=== PATIENT | female | born 1950 | race Caucasian/White ===

== ENCOUNTER 2016-04-29 11:37 | Inpatient (IN) | payer OTHER, MEDICARE ==
[~2016-04-29] VITALS: Ht 162.6 cm; Wt 102.0 kg
[2016-04-29] VITALS (11 sets, daily range): BP systolic 121–177; BP diastolic 61–77; PULSE 74–108; RESP 16–25; TEMP 97.9–98.4; O2SAT 92–98
[~2016-04-29 11:37] MED LIST: ASPI81TA82 PO; ATEN-102 PO; IBUP800T23 PO; LOSA50TA PO; PERC5TAB12 PO; TRAM100T19 PO
[2016-04-29] MEDS ORDERED: SODIUM CHLOR 0.9% 1000 ML INJ 1,000 ML IV SCH (11:58)
[2016-04-29] MEDS ORDERED: FAMOTIDINE 20 MG/2 ML VIAL IV PUSH ONE (12:00)
[2016-04-29] MEDS ORDERED: ONDANSETRON HCL 4 MG/2 ML VIAL IVP ONE (12:00)
[2016-04-29] MEDS ORDERED: MORPHINE SULFATE 4 MG/ML INJ IV PUSH ONE ×2 (12:00→14:15)
[2016-04-29] MEDS ORDERED: SODIUM CHLORIDE 0.9% FLUSH 5 ML FLUSH IVF PRN (12:00)
--- NOTE | 2016-04-29 12:08 | PD ---
HPI Chief Complaint: Abdominal Pain Time Seen by Provider: 11:58 Travel History International Travel<30 days: No Contact w/Intl Traveler<30days: No Traveled to known affect area: No History of Present Illness HPI The patient is a 65-year-old female who presents to the emergency department for abdominal pain. The patient states she had approximately 6 glasses of wine and 4 beers last night, at 4:30 this morning, the patient awakened with sudden nausea. The patient had nausea and vomiting and then subsequently developed epigastric abdominal pain. She also complains of several bouts of loose stool. The patient does have a history pancreatitis, is unsure if it was secondary to alcohol use her medications. The patient denies any history of gallstones, biliary colic, or cholecystitis. The patient's previous abdominal surgeries include tubal ligation and hysterectomy. The patient denies any dysuria, frequency, or urgency. The patient denies any associated fever, chills, sweats, chest pain, or shortness of breath. Symptoms are moderate, pain is described as sharp, epigastric, radiating to the flanks bilaterally, without any alleviating factors. PFSH Past Medical History Arthritis: Yes Depression: Yes Heart Rhythm Problems: No Cancer: No Cardiovascular Problems: Yes (htn) High Cholesterol: No Chest Pain: No Congestive Heart Failure: No Diminished Hearing: No Endocrine: No GERD: No Genitourinary: No Hiatal Hernia: No Hypertension: Yes Immune Disorder: No Musculoskeletal: No Neurologic: No Psychiatric: No Reproductive: No Respiratory: No Migraines: Yes Ulcer: No Tetanus Vaccination: Unknown Influenza Vaccination: No ?: Not : 2 Para: 2 Tubal Ligation: Yes Past Surgical History Abdominal Surgery: Yes (hysterectomy) Cardiac Surgery: No Ear Surgery: No Endocrine Surgery: No Eye Surgery: No Gynecologic Surgery: Yes (hysterectomy) Hysterectomy: Yes Neurologic Surgery: Yes (back surgery 1988, 1991) Oral Surgery: No Thoracic Surgery: No Other Surgery: Yes (DISC SURERY 1988, SPINAL FUSION, 1991) Social History Alcohol Use: Yes ("a few beers every couple of days") Tobacco Use: No Substance Use: No Allergies-Medications (Allergen,Severity, Reaction): Coded Allergies: No Known Allergies (Unverified , 02/19/16) Reported Meds & Prescriptions Reported Meds & Active Scripts Active Losartan Potassium 50 MG (Losartan Potassium) 50 Mg Tab 50 Mg PO DAILY Take one daily for high blood pressure. Ibuprofen 800 Mg Tab 800 Mg PO Q6H PRN Percocet 5-325 mg (Oxycodone/Acetaminophen) 1 Tab 1 Tab PO Q4H PRN Tramadol HCl ER (Tramadol HCl) 100 Mg Tab 100 Mg PO DAILY Take 1-2 pills, as needed, for pain. Atenolol 50 Mg Tab 50 Mg PO DAILY Take 1 pill daily. Reported Aspir-81 (Aspirin) 81 Mg Tab 81 Mg PO DAILY Review of Systems Except as stated in HPI: all other systems reviewed are Neg General / Constitutional: No: Fever HENT: No: Lightheadedness Cardiovascular: No: Chest Pain or Discomfort Respiratory: No: Shortness of Breath Gastrointestinal: Positive: Nausea, Vomiting, Diarrhea, Abdominal Pain Genitourinary: No: Dysuria Musculoskeletal: No: Myalgias, Arthralgias Neurologic: No: Dizziness Physical Exam Narrative GENERAL: Awake, alert, 55 year-old female who appears her stated age and appears in moderate discomfort. SKIN: Warm and dry. HEAD: Atraumatic. Normocephalic. EYES: Pupils equal and round. No scleral icterus. No injection or drainage. ENT: No nasal bleeding or discharge. Mucous membranes pink and moist. NECK: Trachea midline. No JVD. CARDIOVASCULAR: Regular rate and rhythm. No murmur appreciated. RESPIRATORY: No accessory muscle use. Clear to auscultation. Breath sounds equal bilaterally. GASTROINTESTINAL: Abdomen soft, tender palpation epigastrium. Mild guarding, no rebound tenderness or rigidity noted. MUSCULOSKELETAL: No obvious deformities. No clubbing. No cyanosis. No edema. NEUROLOGICAL: Awake and alert. No obvious cranial nerve deficits. Motor grossly within normal limits. Normal speech. PSYCHIATRIC: Appropriate mood and affect; insight and judgment normal. Data Data Last Documented VS Vital Signs Date Time Temp Pulse Resp B/P Pulse Ox O2 Delivery O2 Flow Rate FiO2 04/29/16 12:27 98 Room Air 04/29/16 11:56 96 20 146/67 04/29/16 11:46 97.9 Orders Complete Blood Count With Diff (04/29/16 11:58) Comprehensive Metabolic Panel (04/29/16 11:58) Lipase (04/29/16 11:58) Lactic Acid (04/29/16 11:58) Urinalysis - C+S If Indicated (04/29/16 11:58) Ct Abd/Pel W/O Iv Contrast (04/29/16 11:58) Iv Access Insert/Monitor (04/29/16 11:58) Ecg Monitoring (04/29/16 11:58) Oximetry (04/29/16 11:58) Morphine Inj (Morphine Inj) (04/29/16 12:00) Ondansetron Inj (Zofran Inj) (04/29/16 12:00) Sodium Chlor 0.9% 1000 Ml Inj (Ns 1000 M (04/29/16 11:58) Sodium Chloride 0.9% Flush (Ns Flush) (04/29/16 12:00) Electrocardiogram (04/29/16 11:58) Famotidine Inj (Pepcid Inj) (04/29/16 12:00) Sodium Chlor 0.9% 1000 Ml Inj (Ns 1000 M (04/29/16 13:00) Magnesium (Mg) (04/29/16 13:43) Sodium Chlor 0.9% 1000 Ml Inj (Ns 1000 M (04/29/16 14:15) Morphine Inj (Morphine Inj) (04/29/16 14:15) Admit Order (Ed Use Only) (04/29/16 14:09) Labs Laboratory Tests Test 04/29/16 12:00 White Blood Count 15.3 TH/MM3 Red Blood Count 4.90 MIL/MM3 Hemoglobin 15.2 GM/DL Hematocrit 44.9 % Mean Corpuscular Volume 91.6 FL Mean Corpuscular Hemoglobin 31.0 PG Mean Corpuscular Hemoglobin 33.8 % Concent Red Cell Distribution Width 13.2 % Platelet Count 197 TH/MM3 Mean Platelet Volume 8.6 FL Neutrophils (%) (Auto) 87.8 % Lymphocytes (%) (Auto) 7.3 % Monocytes (%) (Auto) 4.5 % Eosinophils (%) (Auto) 0.1 % Basophils (%) (Auto) 0.3 % Neutrophils # (Auto) 13.4 TH/MM3 Lymphocytes # (Auto) 1.1 TH/MM3 Monocytes # (Auto) 0.7 TH/MM3 Eosinophils # (Auto) 0.0 TH/MM3 Basophils # (Auto) 0.0 TH/MM3 CBC Comment DIFF FINAL Differential Comment Sodium Level 141 MEQ/L Potassium Level 3.7 MEQ/L Chloride Level 107 MEQ/L Carbon Dioxide Level 18.9 MEQ/L Anion Gap 15 MEQ/L Blood Urea Nitrogen 18 MG/DL Creatinine 1.01 MG/DL Estimat Glomerular Filtration 55 ML/MIN Rate Random Glucose 169 MG/DL Lactic Acid Level 5.7 mmol/L Calcium Level 9.2 MG/DL Total Bilirubin 2.5 MG/DL Aspartate Amino Transf 267 U/L (AST/SGOT) Alanine Aminotransferase 253 U/L (ALT/SGPT) Alkaline Phosphatase 145 U/L Total Protein 7.7 GM/DL Albumin 4.0 GM/DL Lipase GREATER THAN 94652 U/L [facility] Medical Decision Making Medical Screen Exam Complete: Yes Emergency Medical Condition: Yes Medical Record Reviewed: Yes Interpretation(s) EKG reveals sinus tachycardia with a rate of 108. QTC is 407 ms. QT appears longer than half the R-R interval. Laboratory Tests Test 04/29/16 12:00 White Blood Count 15.3 TH/MM3 Red Blood Count 4.90 MIL/MM3 Hemoglobin 15.2 GM/DL Hematocrit 44.9 % Mean Corpuscular Volume 91.6 FL Mean Corpuscular Hemoglobin 31.0 PG Mean Corpuscular Hemoglobin 33.8 % Concent Red Cell Distribution Width 13.2 % Platelet Count 197 TH/MM3 Mean Platelet Volume 8.6 FL Neutrophils (%) (Auto) 87.8 % Lymphocytes (%) (Auto) 7.3 % Monocytes (%) (Auto) 4.5 % Eosinophils (%) (Auto) 0.1 % Basophils (%) (Auto) 0.3 % Neutrophils # (Auto) 13.4 TH/MM3 Lymphocytes # (Auto) 1.1 TH/MM3 Monocytes # (Auto) 0.7 TH/MM3 Eosinophils # (Auto) 0.0 TH/MM3 Basophils # (Auto) 0.0 TH/MM3 CBC Comment DIFF FINAL Differential Comment Sodium Level 141 MEQ/L Potassium Level 3.7 MEQ/L Chloride Level 107 MEQ/L Carbon Dioxide Level 18.9 MEQ/L Anion Gap 15 MEQ/L Blood Urea Nitrogen 18 MG/DL Creatinine 1.01 MG/DL Estimat Glomerular Filtration 55 ML/MIN Rate Random Glucose 169 MG/DL Lactic Acid Level 5.7 mmol/L Calcium Level 9.2 MG/DL Total Bilirubin 2.5 MG/DL Aspartate Amino Transf 267 U/L (AST/SGOT) Alanine Aminotransferase 253 U/L (ALT/SGPT) Alkaline Phosphatase 145 U/L Total Protein 7.7 GM/DL Albumin 4.0 GM/DL Lipase GREATER THAN 59494 U/L Differential Diagnosis Differential diagnosis includes pancreatitis, gastritis, peptic ulcer disease, cholecystitis, biliary colic, nephrolithiasis, pyelonephritis, AAA. Narrative Course IV was established, labs are drawn and sent, and the patient was placed on cardiac telemetry monitoring and continuous pulse oximetry monitoring. The patient was administered morphine, Zofran, Prevacid, and IV fluids. Lipase level was sent to lab and CT of the abdomen and pelvis was ordered. Lipase was greater than 30,000, LFTs are mildly elevated. When I reviewed the EMR, her previous pancreatitis lipase level was greater than 15,000 and LFTs were elevated as well. The patient had a CT the abdomen and pelvis as well as ultrasound of the gallbladder at that time which was negative for obstructive pathology. CT the abdomen and pelvis today reveals pancreatitis with inflammatory changes extending into the mesentery but no obstructive pathology. The patient's pain did improve to 5/10, therefore, she was dosed with another dose of morphine intravenously. Lactic acid was elevated at 5.7, therefore, second liter of IV fluids was bolused. I discussed the patient with her physicians, the residents, who agreed with admission. The patient will be placed in intensive care unit overnight for IV hydration and to evaluate for possible conversion to hemorrhagic pancreatitis. The patient is comfortable with this plan of care and disposition. Physician Communication Physician Communication I discussed the patient with Dr. Mcgrath who agrees with admission. Diagnosis Primary Impression: Acute pancreatitis Qualified Code: K85.20 - Alcohol-induced acute pancreatitis, unspecified complication status Additional Impression: Epigastric abdominal pain Admitting Information Admitting Physician Requests: Admit Condition: Stable Surendra Dao MD Apr 29, 2016 12:08
[2016-04-29 12:29] LABS: AUTOMATED NEUTROPHIL # 13.4 TH/MM3 (1.8-7.7); BASOPHIL % 0.3 % (0.0-2.0); EOSINOPHIL % 0.1 % (0.0-4.0); HEMATOCRIT 44.9 % (35.0-46.0); HEMO FLAGS DIFF FINAL; LYMPH % 7.3 % (9.0-44.0); LYMPHOCYTE # 1.1 TH/MM3 (1.0-4.8); MEAN CELL VOLUME 91.6 FL (80.0-100.0); MEAN CORPUSCULAR HGB CONC 33.8 % (32.0-36.0); MONO % 4.5 % (0.0-8.0); NEUT % 87.8 % (16.0-70.0); PLATELET COUNT 197 TH/MM3 (150-450); RED CELL DISTRIBUTION WIDTH 13.2 % (11.6-17.2); WHITE BLOOD COUNT 15.3 TH/MM3 (4.0-11.0)
[2016-04-29 12:47] LABS: ANION GAP 15 MEQ/L (5-15); AST (GOT) 267 U/L (15-37); BICARBONATE 18.9 MEQ/L (21.0-32.0); BLOOD UREA NITROGEN 18 MG/DL (7-18); CHLORIDE 107 MEQ/L (98-107); GLOMERULAR FILTRATION RATE 55 ML/MIN (>89); POTASSIUM 3.7 MEQ/L (3.5-5.1); SODIUM (NA) 141 MEQ/L (136-145)
[2016-04-29 12:51] LABS: ALKALINE PHOSPHATASE 145 U/L (45-117); ALT (GPT) 253 U/L (10-53); TOTAL BILIRUBIN ADULT 2.5 MG/DL (0.2-1.0)
[2016-04-29] MEDS ORDERED: SODIUM CHLOR 0.9% 1000 ML INJ 1,000 ML IV ONE ×2 (13:00→14:15)
--- NOTE | 2016-04-29 13:39 | RADRPT ---
EXAM DATE/TIME: 04/29/2016 13:09 [facility] COMPARISON: CT ABDOMEN & PELVIS W CONTRAST, December 24, 2014, 11:26. INDICATIONS : Mid abdomen painstarting last night with diarrhea and nausea. ORAL CONTRAST: No oral contrast ingested. RADIATION DOSE: 11.27 CTDIvol (mGy) MEDICAL HISTORY : Pancreatitis. Cardiovascular disease Hypertension. SURGICAL HISTORY : Hysterectomy. Orthopedic ENCOUNTER: Initial ACUITY: 1 day PAIN SCALE: 10/10 LOCATION: Bilateral abdomen TECHNIQUE: Volumetric scanning of the abdomen and pelvis was performed. Using automated exposure control and ad justment of the mA and/or kV according to patient size, radiation dose was kept as low as reasonably achievable to obtain optimal diagnostic quality images. FINDINGS: Again noted is evidence of prior surgery L5-S1 laminectomy and transpedicular screws with vertical wr ist. There is fatty metamorphosis of the liver. Subtle left renal cysts are appreciated on this nonco ntrast study. Gallbladder series luminal structure without wall thickening or stones and there is no evidence of dilated ducts. Significant change is in the region of the pancreas where there is infiltrative inflammatory change in the peripancreatic fat particularly r elative to the head of the pancreas and adjacent body and extending into the mesentery. There is no o rganized fluid collection abscess or free air. CONCLUSION: Findings consistent with development of pancreatitis Reese Galvez MD on April 29, 2016 at 13:32 Board Certified Radiologist. This report was verified electronically.
[2016-04-29] MEDS ORDERED: SODIUM CHLORIDE 0.9% FLUSH 5 ML FLUSH IV PRN (14:30)
[2016-04-29] MEDS ORDERED: ONDANSETRON HCL 4 MG/2 ML VIAL IV PRN (14:30)
[2016-04-29] MEDS ORDERED: KETOROLAC TROMETHAMINE 30 MG/ML (IVP) VIAL IVP PRN (14:30)
[2016-04-29] MEDS ORDERED: ACETAMINOPHEN/HYDROcodone 325 MG/7.5 MG TAB PO PRN (14:30)
--- NOTE | 2016-04-29 14:31 | HHI.HP ---
[facility] Service [facility] Primary Care Physician Renae Miller MD Admission Diagnosis severe pancreatitis, lactic acidosis, transaminitis Diagnoses: International Travel<30 Days: No Contact w/Intl Traveler<30days: No Known Affected Area: No History of Present Illness 65-year-old female with history of hypertension, osteoarthritis of hands, chronic low back pain, obesity, and gout presents to the ED for abdominal pain. She was hospitalized for acute pancreatitis in March 2015 and lipase at that time was 15,000. She says that she is unsure if it was secondary to alcohol or her medications at that time. At that admission, she denied heavy drinking the week or day prior to attack. She did leave AMA after declining HIDA scan and MRCP. Hepatitis workup was not completed. Ultrasound did not find gallstone or inflammation of gallbladder. She has declined screening colonoscopy as outpatient. Recent order for GI referral and colonoscopy as an outpatient was placed and set up, but patient then declined the appointment when GI call to set up the referral. Last night she drank 6 glasses of wine and 4 beers. She woke up around 4:30am this morning with sudden nausea, vomiting and epigastric abdominal pain associated with loose stools. She denies history of gallstones, biliary colic, or cholecystitis. Denies dysuria, frequency, or urgency. Denies fever, chills, sweats, chest pain, or shortness of breathe. Her main complaint is the sharp, epigastric abdominal pain, radiating to the flanks bilaterally. The pain is worse with movement. Review of Systems Constitutional: DENIES: Fever, Chills Endocrine: DENIES: Polydipsia, Polyuria Eyes: DENIES: Blurred vision, Vision loss Ears, nose, mouth, throat: DENIES: Running Nose Respiratory: DENIES: Cough, Sputum production, Shortness of breath Cardiovascular: DENIES: Chest pain Gastrointestinal: COMPLAINS OF: Abdominal pain, Diarrhea, Nausea, Vomiting, DENIES: Constipation Genitourinary: DENIES: Urinary frequency, Urgency, Dysuria Musculoskeletal: COMPLAINS OF: Back pain (chronic), DENIES: Joint pain, Muscle aches Integumentary: DENIES: Rash Neurologic: DENIES: Abnormal gait, Headache, Tremor Past Family Social History Past Medical History Hypertension OA of hands: Chronic Low Back Pain: Gout Pancreatitis Radius Fracture Past Surgical History Tubal ligation Hysterectomy. Back surgery: Disc 1989 and sacral vertebral fusion 1991 Reported Medications Reported Meds & Active Scripts Active Losartan Potassium 50 MG (Losartan Potassium) 50 Mg Tab 50 Mg PO DAILY Take one daily for high blood pressure. Ibuprofen 800 Mg Tab 800 Mg PO Q6H PRN Percocet 5-325 mg (Oxycodone/Acetaminophen) 1 Tab 1 Tab PO Q4H PRN Tramadol HCl ER (Tramadol HCl) 100 Mg Tab 100 Mg PO DAILY Take 1-2 pills, as needed, for pain. Atenolol 50 Mg Tab 50 Mg PO DAILY Take 1 pill daily. Reported Aspir-81 (Aspirin) 81 Mg Tab 81 Mg PO DAILY Allergies: Coded Allergies: No Known Allergies (Unverified , 02/19/16) Family History Adopted, but maternal aunt had breast cancer. Social History Nonsmoker. 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 SKIN: Warm and dry. HEAD: Atraumatic. Normocephalic. EYES: Pupils equal and round. No scleral icterus. No injection or drainage. ENT: No nasal bleeding or discharge. Mucous membranes pink and moist. NECK: Trachea midline. No JVD. CARDIOVASCULAR: Regular rate and rhythm. No murmur appreciated. RESPIRATORY: No accessory muscle use. Clear to auscultation. Breath sounds equal bilaterally. GASTROINTESTINAL: Abdomen soft, tender palpation on epigastrium. Mild guarding , no rebound tenderness or rigidity noted. MUSCULOSKELETAL: No obvious deformities. No clubbing. No cyanosis. No edema. NEUROLOGICAL: Awake and alert. No obvious cranial nerve deficits. Motor grossly within normal limits. Normal speech. PSYCHIATRIC: Appropriate mood and affect; insight and judgment normal. Laboratory Laboratory Tests Test 04/29/16 12:00 White Blood Count 15.3 Red Blood Count 4.90 Hemoglobin 15.2 Hematocrit 44.9 Mean Corpuscular Volume 91.6 Mean Corpuscular Hemoglobin 31.0 Mean Corpuscular Hemoglobin 33.8 Concent Red Cell Distribution Width 13.2 Platelet Count 197 Mean Platelet Volume 8.6 Neutrophils (%) (Auto) 87.8 Lymphocytes (%) (Auto) 7.3 Monocytes (%) (Auto) 4.5 Eosinophils (%) (Auto) 0.1 Basophils (%) (Auto) 0.3 Neutrophils # (Auto) 13.4 Lymphocytes # (Auto) 1.1 Monocytes # (Auto) 0.7 Eosinophils # (Auto) 0.0 Basophils # (Auto) 0.0 CBC Comment DIFF FINAL Differential Comment Sodium Level 141 Potassium Level 3.7 Chloride Level 107 Carbon Dioxide Level 18.9 Anion Gap 15 Blood Urea Nitrogen 18 Creatinine 1.01 Estimat Glomerular Filtration 55 Rate Random Glucose 169 Lactic Acid Level 5.7 Calcium Level 9.2 Total Bilirubin 2.5 Aspartate Amino Transf 267 (AST/SGOT) Alanine Aminotransferase 253 (ALT/SGPT) Alkaline Phosphatase 145 Total Protein 7.7 Albumin 4.0 Lipase GREATER THAN 59306 Result Diagram: 04/29/16 1200 04/29/16 1200 Septic Shock Reassessment Heart: Regular rate and rhythm Lungs: Clear Skin: Warm, Dry Assessment and Plan Assessment and Plan 65-year-old female admitted previously in 2014 for acute pancreatitis presents to the ED with acute abdominal pain, nausea and vomiting found to lipase elevated to >30,[address] of abdomen and pelvis with findings of acute pancreatitis. Code Status Full Discussed Condition With Discussed with Dr. Marks Problem List: (1) Acute pancreatitis Status: Acute Plan: Differential diagnosis includes pancreatitis, gastritis, peptic ulcer disease, cholecystitis, biliary colic, nephrolithiasis, pyelonephritis, mesenteric ischemia, [place], AAA. Previous pancreatitis lipase level was >15,000 and LFTs were elevated as well. CT the abdomen and pelvis as well as ultrasound of the gallbladder at that time were negative for obstructive pathology. Today CT the abdomen and pelvis shows pancreatitis with inflammatory changes extending into the mesentery but no obstructive pathology. Lipase > 30,000, LFTs elevated at 267/253. Lactic acid elevated at 5.7. LDH 563. Bilirubin 2.5 , direct bilirubin 1.7. -Potential etiologies for pancreatitis include gallstones, alcoholism, hypertriglyceridemia, medications, recent fatty meal, virus - Given morphine x2, Zofran, Prevacid, and IV fluids in ED. - Leukocytosis of 15.3 with left shift, neutrophil 87.8%. Temperature 97.9 - UA negative, UDS negative - NPO - GI consulted, appreciate assistance. Plan is for MRCP. May need EGD during this admission. - IgG 4 level ordered - LR at 125cc/hr - Zofran when necessary nausea - Strict I/O. OUP goal is > 0.5 cc/kg/hr. Will titrate fluids based on UOP. - Trend lactic acid per sepsis protocol - Hepatitis profile pending - A.M. labs: CBC, CMP, lipase, magnesium, phosphorus -Pain control: Morphine 4mg IV q3hr PRN pain 4-10 [place] 7.5/325 2 tablets PO PRN pain 1-3 -Admit to intensive care unit overnight for IV hydration and to monitor for possible conversion to hemorrhagic pancreatitis - Chest x-ray may be needed to evaluate for pleural effusions if patient becomes symptomatic (2) HTN (hypertension) Status: Chronic Plan: Blood pressure 146/67 - Continue home medications of Cozaar 50 daily, and atenolol 50 daily - Hydralazine 10 mg by mouth every 4 hours when necessary blood pressure greater than 160/90 (3) Osteoarthritis Status: Chronic Plan: Continue pain medication as above (4) Gout Status: Chronic Plan: Not on medication currently. Patient requested a trial off of allopurinol in February 2016. Last flare up years past. (5) Lumbar back pain Status: Chronic Plan: Pain medications as above. (6) Alcohol use Status: Chronic Plan: Counseled on cessation, as this could be contributing to development of pancreatitis (7) Nutrition, metabolism, and development symptoms Status: Acute Plan: Fluids: LR 125 cc/hr Electrolytes: Normal, continue to monitor Diet: NPO DVT PPx: SCDs Physician Certification 2 Midnight Certification Type: Admission for Inpatient Services Order for Inpatient Services The services are ordered in accordance with Medicare regulations or non- Medicare payer requirements, as applicable. In the case of services not specified as inpatient-only, they are appropriately provided as inpatient services in accordance with the 2-midnight benchmark. Estimated LOS (days): 2 2 days is the estimated time the patient will need to remain in the hospital, assuming treatment plan goals are met and no additional complications. Post-Hospital Plan: Not yet determined Problem Qualifiers (1) Acute pancreatitis: Qualified Code: K85.20 - Alcohol-induced acute pancreatitis, unspecified complication status (2) HTN (hypertension): Qualified Code: I10 - Essential hypertension (3) Osteoarthritis: Qualified Code: M19.90 - Osteoarthritis, unspecified osteoarthritis type, unspecified site (4) Gout: Qualified Code: M10.9 - Gout, unspecified cause, unspecified chronicity, unspecified site (5) Lumbar back pain: Qualified Code: M54.5 - Chronic low back pain, unspecified back pain laterality , with sciatica presence unspecified Adriana Mcgrath MD Apr 29, 2016 14:31
[2016-04-29 15:11] LABS: BLOOD, URINE NEG (NEG); COMMENT (UR) CULT NOT INDICATED; CULTURE IF INDICATED CULT NOT INDICATED; GLUCOSE,URINE NEG (NEG); KETONE, URINE 10 mg/dL (NEG); MUCUS URINE FEW /lpf (OCC); NITRITE,URINE NEG (NEG); SQUAMOUS EPITHELIAL CELL URINE 1 /hpf (0-5); URINE COLOR YELLOW (YELLW/STRAW)
[2016-04-29 15:14] LABS: AMPHETAMINE, URINE NEG (NEG); BARBITURATES, URINE NEG (NEG); COCAINE, URINE NEG (NEG)
[2016-04-29 15:21] LABS: LDH SERUM 563 U/L (84-246); MAGNESIUM 1.8 MG/DL (1.5-2.5)
[2016-04-29] MEDS: LACTATED RINGER'S 1000 ML INJ 1,000 ML IV SCH ×2 (16:13→23:41)
--- NOTE | 2016-04-29 16:22 | PD.CONS ---
HPI History of Present Illness This is a 65 year old female patient that came to the ER for evaluation of acute onset of severe constant epigastric pain associated with nausea, vomiting and diarrhea. This began suddenly 4 am, this is a severe band-like pressure around epigastric area that radiated to her chest. She denies any associated jaundice, fever, chills, hematemesis, melena or hematochezia. She had a similar episode last year, and was hospitalized and GI consulted, however, she left AMA at that time after declining HIDA scan and MRCP. Hepatic workup was not completed, but RONAK, celiac panel negative at the time. She denies any known gallbladder or liver problems. She denies any new medications. She denies the use herbal supplements. She is adopted and does not know her family hx. She usually drinks 1-2 beers per day, but had more than usual last night ( 6 glasses of wine and 4 beers). She denies any new medications. She denies the use herbal supplements. She is adopted and does not know her family hx. CT revealed Findings consistent with development of pancreatitis. Lipase > 21274, elevated LFTs, AST 267, ALT 253, ALP 145, bili 2.5. WBC 15.3. (Casey Urena) PFSH Past Medical History Arthritis Gout HTN Migraines Pancreatitis Past Surgical History Hysterectomy Spinal fusion (Casey Urena) Coded Allergies: No Known Allergies (Unverified , 02/19/16) Medications Current Medications Medications (Trade) Dose Ordered Sig/Liz Route Start Time Stop Time Status Last Admin (Lr 1000 ml Inj) 1,000 ml @ 125 mls/hr Q8H IV 04/29/16 15:00 (NS Flush) 2 ml UNSCH PRN IV 04/29/16 14:30 (NS Flush) 2 ml BID IV 04/29/16 21:00 (Morphine Inj) 4 mg Q3H PRN IV PUSH 04/29/16 14:30 (Zofran Inj) 4 mg Q6H PRN IV 04/29/16 14:30 ([place] 7.5-325 Mg) 2 tab Q6H PRN PO 04/29/16 14:30 (Aspirin Chew) 81 mg DAILY PO 04/30/16 09:00 (Tenormin) 50 mg DAILY PO 04/30/16 09:00 (Cozaar) 50 mg DAILY PO 04/30/16 09:00 Family History Adopted Social History ETOH, usually 1-2 beers, but last night had (6 glasses of wine and 4 beers) No tobacco or illicit drugs (Casey Urena) Review of Systems Constitutional: DENIES: Fatigue, Fever, Chills Endocrine: DENIES: Polyuria Eyes: DENIES: Double Vision Ears, nose, mouth, throat: DENIES: Hoarseness Respiratory: DENIES: Shortness of breath Cardiovascular: DENIES: Lower Extremity Edema Gastrointestinal: COMPLAINS OF: Abdominal pain, Diarrhea, Nausea, Vomiting, DENIES: Black stools, Bloody stools, Constipation, Difficulty Swallowing, Anorexia, Odynophagia, Swelling of Abdomen, Heartburn, Hematemesis Genitourinary: DENIES: Hematuria Musculoskeletal: DENIES: Neck pain Integumentary: DENIES: Jaundice Hematologic/lymphatic: DENIES: Bruising Immunologic/allergic: DENIES: Eczema Neurologic: DENIES: Abnormal gait Psychiatric: DENIES: Anxiety (Casey Urena) GI Exam Vitals I&O Vital Signs Date Time Temp Pulse Resp B/P Pulse Ox O2 Delivery O2 Flow Rate FiO2 04/29/16 15:06 93 Nasal Cannula 2.00 04/29/16 15:01 18 04/29/16 14:59 105 20 150/68 92 Room Air 04/29/16 12:39 16 04/29/16 12:27 98 Room Air 04/29/16 11:56 96 20 146/67 98 Room Air 04/29/16 11:46 97.9 74 16 164/70 95 Imaging Last Impressions Abdomen/Pelvis CT 04/29/16 1158 Signed Impressions: Service Date/Time: Friday, April 29, 2016 13:09 - CONCLUSION: Findings consistent with development of pancreatitis Reese Galvez MD Laboratory Test 04/29/16 04/29/16 04/29/16 12:00 14:45 14:55 White Blood Count 15.3 TH/MM3 Red Blood Count 4.90 MIL/MM3 Hemoglobin 15.2 GM/DL Hematocrit 44.9 % Mean Corpuscular Volume 91.6 FL Mean Corpuscular Hemoglobin 31.0 PG Mean Corpuscular Hemoglobin 33.8 % Concent Red Cell Distribution Width 13.2 % Platelet Count 197 TH/MM3 Mean Platelet Volume 8.6 FL Neutrophils (%) (Auto) 87.8 % Lymphocytes (%) (Auto) 7.3 % Monocytes (%) (Auto) 4.5 % Eosinophils (%) (Auto) 0.1 % Basophils (%) (Auto) 0.3 % Neutrophils # (Auto) 13.4 TH/MM3 Lymphocytes # (Auto) 1.1 TH/MM3 Monocytes # (Auto) 0.7 TH/MM3 Eosinophils # (Auto) 0.0 TH/MM3 Basophils # (Auto) 0.0 TH/MM3 CBC Comment DIFF FINAL Differential Comment Sodium Level 141 MEQ/L Potassium Level 3.7 MEQ/L Chloride Level 107 MEQ/L Carbon Dioxide Level 18.9 MEQ/L Anion Gap 15 MEQ/L Blood Urea Nitrogen 18 MG/DL Creatinine 1.01 MG/DL Estimat Glomerular Filtration 55 ML/MIN Rate Random Glucose 169 MG/DL Lactic Acid Level 5.7 mmol/L Calcium Level 9.2 MG/DL Total Bilirubin 2.5 MG/DL Aspartate Amino Transf 267 U/L (AST/SGOT) Alanine Aminotransferase 253 U/L (ALT/SGPT) Alkaline Phosphatase 145 U/L Total Protein 7.7 GM/DL Albumin 4.0 GM/DL Lipase GREATER THAN 74179 U/L Urine Color YELLOW Urine Turbidity CLEAR Urine pH 5.0 Urine Specific [place] 1.015 Urine Protein TRACE mg/dL Urine Glucose (UA) NEG mg/dL Urine Ketones 10 mg/dL Urine Occult Blood NEG Urine Nitrite NEG Urine Bilirubin NEG Urine Urobilinogen LESS THAN 2.0 MG/DL Urine Leukocyte Esterase MOD Urine RBC LESS THAN 1 /hpf Urine WBC 3 /hpf Urine Squamous Epithelial 1 /hpf Cells Urine Mucus FEW /lpf Microscopic Urinalysis Comment CULT NOT INDICATED Urine Opiates Screen POS Urine Barbiturates Screen NEG Urine Amphetamines Screen NEG Urine Benzodiazepines Screen NEG Urine Cocaine Screen NEG Urine Cannabinoids Screen NEG Magnesium Level 1.8 MG/DL Direct Bilirubin 1.7 MG/DL Lactate Dehydrogenase 563 U/L C-Reactive Protein 2.05 MG/DL Triglycerides Level 76 MG/DL Ethyl Alcohol Level LESS THAN 3 MG/DL Physical Examination HEENT: normocephalic; atraumatic; no jaundice. Throat is clear. NECK: Neck is supple, no JVD, no lymphadenopathy. CHEST: Chest is clear to auscultation and percussion. CARDIAC: Regular rate and rhythm with no murmur gallop or rubs. ABDOMEN: Soft, nondistended, nontender; no hepatosplenomegaly; bowel sounds are present in all four quadrants. EXTREMITIES: No clubbing, cyanosis, or edema. SKIN: Normal; no rash; no jaundice. MACHINE SIZER: No focal deficits; alert and oriented times three. (Casey Urena) Assessment and Plan Plan ASSESSMENT: - Acute pancreatitis, unclear etiology. She usually drinks 1-2 beers per day, but had more than usual last night ( 6 glasses of wine and 4 beers). She denies any new medications. She denies the use herbal supplements. She is adopted and does not know her family hx. CT revealed Findings consistent with development of pancreatitis. Lipase > 71279, elevated LFTs, AST 267, ALT 253, ALP 145, bili 2.5. WBC 15.3. acute onset of severe constant epigastric pain associated with nausea, vomiting and diarrhea. This began suddenly 4 am, this is a severe band-like pressure around epigastric area that radiated to her chest. She denies any associated jaundice, fever, chills, hematemesis, melena or hematochezia. She had a similar episode last year, and was hospitalized and GI consulted, however, she left A at that time after declining HIDA scan and MRCP. Hepatic workup was not completed, but RONAK, celiac panel negative at the time. She denies any known gallbladder or liver problems. She denies any new medications. She denies the use herbal supplements. She is adopted and does not know her family hx. - Elevated LFTs. RONAK, celiac panel negative last year. She is on chronic use of hydrocodone, No prior hx of liver dz. - Alcohol use- counselled - Leukocytosis- WBC 15.3, afebrile - HTN, Arthritis, Gout, Migraines per primary PLAN: - NPO - MRCP - IgG 4 level - Hepatitis panel - Lipase, LFT in am - Alcohol cessation - Consider EGD during this admission - Supportive care - Further recommendations to follow based on results of above - Pt seen and examined by Dr. Camupzano and myself and this note is written on his behalf (Casey Urena) Physician Comments Seen and examined, plan as above, for further work up for etiology of her pancreatitis, continue supportive care for now. (Geena Campuzano MD) Casey Urena [facility] Apr 29, 2016 16:22 Geena Campuzano MD Apr 29, 2016 21:51
--- NOTE | 2016-04-29 18:06 | RADRPT ---
EXAM DATE/TIME: 04/29/2016 17:26 [facility] COMPARISON: CT ABDOMEN & PELVIS W/O CONTRAST, April 29, 2016, 13:09. INDICATIONS : Abdominal pain. MEDICAL HISTORY : Hypertension. SURGICAL HISTORY : Tubal ligation. Fusion, lumbar. Hysterectomy. ENCOUNTER: Initial ACUITY: 1 day PAIN SCORE: 6/10 LOCATION: ABDOMEN TECHNIQUE: Multiplanar, multisequence magnetic resonance imaging of the abdomen was performed. High-resolution 3D dataset was utilized to reconstruct maximum-intensity projection (MIP) images. FINDINGS: Gallbladder there is a luminal structure appears normal with no evidence of stones. Indeterminate ext rahepatic bile ducts are normal with no evidence of stricture or defect or dilatation. There is a tra ce amount of free fluid in the upper abdomen and the pancreas appears somewhat prominent. Multiple cy sts are appreciated of the mid to lower pole of the left kidney. CONCLUSION: Normal gallbladder and bile ducts. Somewhat prominent pancreas with indistinct margins suggesting erickson creatitis less prominent than appreciated on today's CT scan. Trace amount of ascitic fluid in the up per abdomen. Reese Galvez MD on April 29, 2016 at 18:00 Board Certified Radiologist. This report was verified electronically.
[2016-04-29 18:15] LABS: LACTIC ACID GHOST NOT REPORTABLE
[2016-04-29] MEDS: MORPHINE SULFATE 8 MG/ML INJ IV PUSH PRN (18:15)
[2016-04-29] MEDS: hydrALAZINE HCL 10 MG TAB PO PRN (18:16)
[2016-04-29] MEDS: SODIUM CHLORIDE 0.9% FLUSH 5 ML FLUSH IV SCH (19:43)
[2016-04-30] VITALS (14 sets, daily range): BP systolic 108–153; BP diastolic 54–68; PULSE 70–98; RESP 13–23; TEMP 97.5–98.4; O2SAT 91–96
[2016-04-30] MEDS: MORPHINE SULFATE 8 MG/ML INJ IV PUSH PRN ×2 (00:32→08:57)
[2016-04-30 04:29] LABS: AUTOMATED NEUTROPHIL # 11.4 TH/MM3 (1.8-7.7); BASOPHIL % 0.1 % (0.0-2.0); HEMATOCRIT 41.2 % (35.0-46.0); HEMO FLAGS DIFF FINAL; LYMPH % 7.8 % (9.0-44.0); MEAN CELL VOLUME 92.6 FL (80.0-100.0); MEAN CORPUSCULAR HEMOGLOBIN 31.3 PG (27.0-34.0); MEAN CORPUSCULAR HGB CONC 33.8 % (32.0-36.0); MONO % 2.1 % (0.0-8.0); PLATELET COUNT 165 TH/MM3 (150-450); RED BLOOD COUNT 4.45 MIL/MM3 (4.00-5.30); RED CELL DISTRIBUTION WIDTH 13.3 % (11.6-17.2); WHITE BLOOD COUNT 12.6 TH/MM3 (4.0-11.0)
[2016-04-30 04:57] LABS: ALKALINE PHOSPHATASE 105 U/L (45-117); ALT (GPT) 423 U/L (10-53); ANION GAP 9 MEQ/L (5-15); AST (GOT) 243 U/L (15-37); BICARBONATE 25.4 MEQ/L (21.0-32.0); BLOOD UREA NITROGEN 15 MG/DL (7-18); CHLORIDE 108 MEQ/L (98-107); GLOMERULAR FILTRATION RATE 74 ML/MIN (>89); MAGNESIUM 1.7 MG/DL (1.5-2.5); POTASSIUM 3.5 MEQ/L (3.5-5.1); SODIUM (NA) 142 MEQ/L (136-145)
[2016-04-30 04:58] LABS: TOTAL BILIRUBIN ADULT 2.9 MG/DL (0.2-1.0)
[2016-04-30] MEDS: LACTATED RINGER'S 1000 ML INJ 1,000 ML IV SCH ×3 (08:57→22:50)
[2016-04-30] MEDS: SODIUM CHLORIDE 0.9% FLUSH 5 ML FLUSH IV SCH ×2 (08:57→21:00)
--- NOTE | 2016-04-30 10:18 | HHI.HP ---
[facility] Service Family Medicine Primary Care Physician Renae Miller MD Admission Diagnosis severe pancreatitis, lactic acidosis, transaminitis Diagnoses: (1) Acute pancreatitis Diagnosis: Principal (2) HTN (hypertension) Diagnosis: Principal (3) Osteoarthritis Diagnosis: Principal (4) Gout Diagnosis: Principal (5) Lumbar back pain Diagnosis: Principal (6) Alcohol use Diagnosis: Principal (7) Nutrition, metabolism, and development symptoms Diagnosis: Principal International Travel<30 Days: No Contact w/Intl Traveler<30days: No Known Affected Area: No History of Present Illness Ms Bravo is a 65-year-old female with history of hypertension, osteoarthritis of hands, chronic low back pain, obesity, and gout who presented to the ED for abdominal pain. She was hospitalized for acute pancreatitis in March 2015 and lipase at that time was 15,000. She says that she is unsure if it was secondary to alcohol or her medications at that time. At that admission, she denied heavy drinking the week or day prior to attack. She did leave AMA after declining HIDA scan and MRCP. Hepatitis workup was not completed. Ultrasound did not find gallstone or inflammation of gallbladder. She has declined screening colonoscopy as outpatient. Recent order for GI referral and colonoscopy as an outpatient was placed and set up, but patient then declined the appointment when GI call to set up the referral. The day before admission between 11 am and 8 pm she drank 6 glasses of wine and 4 beers. She woke up around 4:30am the morning of admission with sudden nausea, vomiting and epigastric abdominal pain associated with loose stools. She denies history of gallstones, biliary colic, or cholecystitis. Denies dysuria, frequency, or urgency. Denies fever, chills, sweats, chest pain, or shortness of breath. Her main complaint is the sharp, epigastric abdominal pain, radiating to the flanks bilaterally. The pain is worse with movement. She was placed in the ICU as she had high lactic acid levels and was in danger of getting worse with her lipase as high as the lab can be at greater than 30, 000. However, she feels improved this am and is thirsty. She has continuing pain but much better overall compared to admission. She is hoping to go back to work next week. She did not take any new meds or OTC meds and denied any pills that are known to cause pancreatitis. She denies daily alcohol consumption but did binge drink as well as having large amounts of "spicy wings" before getting pancreatitis this time. Review of Systems Other Constitutional: DENIES: Fever, Chills Endocrine: DENIES: Polydipsia, Polyuria Eyes: DENIES: Blurred vision, Vision loss Ears, nose, mouth, throat: DENIES: Running Nose Respiratory: DENIES: Cough, Sputum production, Shortness of breath Cardiovascular: DENIES: Chest pain Gastrointestinal: COMPLAINS OF: Abdominal pain, Diarrhea, Nausea, Vomiting, DENIES: Constipation Genitourinary: DENIES: Urinary frequency, Urgency, Dysuria Musculoskeletal: COMPLAINS OF: Back pain (chronic), DENIES: Joint pain, Muscle aches Integumentary: DENIES: Rash Neurologic: DENIES: Abnormal gait, Headache, Tremor Past Family Social History Past Medical History Hypertension OA of hands: Chronic Low Back Pain: Gout Pancreatitis Radius Fracture Past Surgical History Tubal ligation Hysterectomy. Back surgery: Disc 1989 and sacral vertebral fusion 1991 Allergies: Coded Allergies: No Known Allergies (Unverified , 02/19/16) Family History Adopted, but maternal aunt had breast cancer. Social History Nonsmoker. 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 Physical Exam Vital Signs Vital Signs Date Time Temp Pulse Resp B/P Pulse Ox O2 Delivery O2 Flow Rate FiO2 04/30/16 09:19 92 Nasal Cannula 5.00 04/30/16 08:00 84 04/30/16 08:00 97.9 86 17 153/68 91 04/30/16 07:00 Nasal Cannula 4.00 04/30/16 06:00 98 04/30/16 04:00 98.1 94 13 141/60 91 04/30/16 04:00 94 04/30/16 02:00 96 04/30/16 00:00 96 04/30/16 00:00 97.5 96 20 141/66 91 04/29/16 23:28 92 Nasal Cannula 4.00 04/29/16 22:00 94 04/29/16 20:00 108 04/29/16 20:00 98.2 105 16 142/61 92 04/29/16 19:15 92 Nasal Cannula 2.00 04/29/16 19:00 93 Nasal Cannula 4.00 04/29/16 18:00 92 Nasal Cannula 4.00 04/29/16 18:00 98.4 100 25 121/70 92 04/29/16 18:00 100 04/29/16 17:16 100 20 177/77 95 Nasal Cannula 2 04/29/16 15:06 93 Nasal Cannula 2.00 04/29/16 15:01 18 04/29/16 14:59 105 20 150/68 92 Room Air 04/29/16 12:39 16 04/29/16 12:27 98 Room Air 04/29/16 11:56 96 20 146/67 98 Room Air 04/29/16 11:46 97.9 74 16 164/70 95 Physical Exam GENERAL: Awake, alert, 55 year-old female who appears her stated age and appears in mild discomfort when moving, NAD when lying still. SKIN: Warm and dry. HEAD: Atraumatic. Normocephalic. EYES: Pupils equal and round. No scleral icterus. No injection or drainage. ENT: No nasal bleeding or discharge. Mucous membranes pink and moist. NECK: Trachea midline. No JVD. CARDIOVASCULAR: Regular rate and rhythm. No murmur appreciated. RESPIRATORY: No accessory muscle use. Clear to auscultation. Breath sounds equal bilaterally. GASTROINTESTINAL: Abdomen soft, tender palpation on epigastrium. Mild guarding , no rebound tenderness or rigidity noted. MUSCULOSKELETAL: No obvious deformities. No clubbing. No cyanosis. No edema. NEUROLOGICAL: Awake and alert. No obvious cranial nerve deficits. Motor grossly within normal limits. Normal speech. PSYCHIATRIC: Appropriate mood and affect; insight and judgment normal. Laboratory Laboratory Tests Test 04/29/16 04/29/16 04/29/16 04/29/16 12:00 14:45 14:55 16:11 White Blood Count 15.3 Red Blood Count 4.90 Hemoglobin 15.2 Hematocrit 44.9 Mean Corpuscular Volume 91.6 Mean Corpuscular Hemoglobin 31.0 Mean Corpuscular Hemoglobin 33.8 Concent Red Cell Distribution Width 13.2 Platelet Count 197 Mean Platelet Volume 8.6 Neutrophils (%) (Auto) 87.8 Lymphocytes (%) (Auto) 7.3 Monocytes (%) (Auto) 4.5 Eosinophils (%) (Auto) 0.1 Basophils (%) (Auto) 0.3 Neutrophils # (Auto) 13.4 Lymphocytes # (Auto) 1.1 Monocytes # (Auto) 0.7 Eosinophils # (Auto) 0.0 Basophils # (Auto) 0.0 CBC Comment DIFF FINAL Differential Comment Sodium Level 141 Potassium Level 3.7 Chloride Level 107 Carbon Dioxide Level 18.9 Anion Gap 15 Blood Urea Nitrogen 18 Creatinine 1.01 Estimat Glomerular Filtration 55 Rate Random Glucose 169 Lactic Acid Level 5.7 4.3 Calcium Level 9.2 Total Bilirubin 2.5 Aspartate Amino Transf 267 (AST/SGOT) Alanine Aminotransferase 253 (ALT/SGPT) Alkaline Phosphatase 145 Total Protein 7.7 Albumin 4.0 Lipase GREATER THAN 34090 Urine Color YELLOW Urine Turbidity CLEAR Urine pH 5.0 Urine Specific [place] 1.015 Urine Protein TRACE Urine Glucose (UA) NEG Urine Ketones 10 Urine Occult Blood NEG Urine Nitrite NEG Urine Bilirubin NEG Urine Urobilinogen LESS THAN 2.0 Urine Leukocyte Esterase MOD Urine RBC LESS THAN 1 Urine WBC 3 Urine Squamous Epithelial 1 Cells Urine Mucus FEW Microscopic Urinalysis Comment CULT NOT INDICATED Urine Opiates Screen POS Urine Barbiturates Screen NEG Urine Amphetamines Screen NEG Urine Benzodiazepines Screen NEG Urine Cocaine Screen NEG Urine Cannabinoids Screen NEG Magnesium Level 1.8 Direct Bilirubin 1.7 Lactate Dehydrogenase 563 C-Reactive Protein 2.05 Triglycerides Level 76 Ethyl Alcohol Level LESS THAN 3 Test 04/29/16 04/29/16 04/30/16 18:00 18:30 03:12 Nasal Screen MRSA (PCR) NEGATIVE Lactic Acid Level 4.3 White Blood Count 12.6 Red Blood Count 4.45 Hemoglobin 13.9 Hematocrit 41.2 Mean Corpuscular Volume 92.6 Mean Corpuscular Hemoglobin 31.3 Mean Corpuscular Hemoglobin 33.8 Concent Red Cell Distribution Width 13.3 Platelet Count 165 Mean Platelet Volume 8.4 Neutrophils (%) (Auto) 90.0 Lymphocytes (%) (Auto) 7.8 Monocytes (%) (Auto) 2.1 Eosinophils (%) (Auto) 0.0 Basophils (%) (Auto) 0.1 Neutrophils # (Auto) 11.4 Lymphocytes # (Auto) 1.0 Monocytes # (Auto) 0.3 Eosinophils # (Auto) 0.0 Basophils # (Auto) 0.0 CBC Comment DIFF FINAL Differential Comment Sodium Level 142 Potassium Level 3.5 Chloride Level 108 Carbon Dioxide Level 25.4 Anion Gap 9 Blood Urea Nitrogen 15 Creatinine 0.78 Estimat Glomerular Filtration 74 Rate Random Glucose 126 Calcium Level 8.2 Phosphorus Level 3.0 Magnesium Level 1.7 Total Bilirubin 2.9 Aspartate Amino Transf 243 (AST/SGOT) Alanine Aminotransferase 423 (ALT/SGPT) Alkaline Phosphatase 105 Total Protein 6.6 Albumin 3.2 Lipase 5756 Result Diagram: 04/30/1631104/30/16311 Septic Shock Reassessment Heart: Regular rate and rhythm Lungs: Clear Skin: Warm, Dry Capillary Refill: Brisk Assessment and Plan Assessment and Plan 65-year-old female admitted previously in 2014 for acute pancreatitis presents to the ED with acute abdominal pain, nausea and vomiting found to lipase elevated to >30,[address] of abdomen and pelvis with findings of acute pancreatitis. Problem List: (1) Acute pancreatitis Status: Acute Plan: Differential diagnosis includes pancreatitis, gastritis, peptic ulcer disease, cholecystitis, biliary colic, nephrolithiasis, pyelonephritis, mesenteric ischemia, IA, AAA. Previous pancreatitis lipase level was >15,000 and LFTs were elevated as well. CT the abdomen and pelvis as well as ultrasound of the gallbladder at that time were negative for obstructive pathology. CT of the abdomen and pelvis shows pancreatitis with inflammatory changes extending into the mesentery but no obstructive pathology. Lipase > 30,000, LFTs elevated at 267/253. Lactic acid elevated at 5.7. LDH 563. Bilirubin 2.5 , direct bilirubin 1.7. -Potential etiologies for pancreatitis include gallstones, alcoholism, hypertriglyceridemia, medications, recent fatty meal, virus. Now better labs with decreased lipase, still elevated but decreasing lactic acid - Given morphine x2, Zofran, Prevacid, and IV fluids in ED. - Leukocytosis of 15.3 with left shift, neutrophil 87.8%. Temperature 97.9. improving leukocytosis - UA negative, UDS negative - NPO initially but now can drink liquids - GI consulted, appreciate assistance. Plan is for MRCP. May need EGD during this admission. - IgG 4 level ordered - LR at 125cc/hr - Zofran when necessary nausea - Strict I/O. OUP goal is > 0.5 cc/kg/hr. Will titrate fluids based on UOP. - Trended lactic acid per sepsis protocol, she is improving overall - Hepatitis profile pending - A.M. labs: CBC, CMP, lipase, magnesium, phosphorus -Pain control: Morphine 4mg IV q3hr PRN pain 4-10 [place] 7.5/325 2 tablets PO PRN pain 1-3 -Admitted to intensive care unit overnight for IV hydration and to monitor for possible conversion to hemorrhagic pancreatitis which is unlikely now as she is improving - Chest x-ray may be needed to evaluate for pleural effusions if patient becomes symptomatic (2) HTN (hypertension) Status: Chronic Plan: Blood pressure 146/67 - Continue home medications of Cozaar 50 daily, and atenolol 50 daily - Hydralazine 10 mg by mouth every 4 hours when necessary blood pressure greater than 160/90 (3) Osteoarthritis Status: Chronic Plan: Continue pain medication as above (4) Gout Status: Chronic Plan: Not on medication currently. Patient requested a trial off of allopurinol in February 2016. Last flare up years past. (5) Lumbar back pain Status: Chronic Plan: Pain medications as above. (6) Alcohol use Status: Chronic Plan: Counseled on cessation, as this could be contributing to development of pancreatitis. Discussed again today that alcohol can be the cause of pancreatitis and abstaining would be barnhart (7) Nutrition, metabolism, and development symptoms Status: Acute Plan: Fluids: LR 125 cc/hr Electrolytes: Normal, continue to monitor Diet: will try clears per GI DVT PPx: SCDs, consider heparin or lovenox as she is not moving well (8) Allergy Status: Acute Plan: she had erythema and pruritus after morphine iv over both arms and upper torso. she had morphine last visit to hospital a year ago without incident but could have some allergy vs rxn to morphine. will change to dilaudid as she will hopefully do better with this Physician Certification 2 Midnight Certification Type: Admission for Inpatient Services Order for Inpatient Services The services are ordered in accordance with Medicare regulations or non- Medicare payer requirements, as applicable. In the case of services not specified as inpatient-only, they are appropriately provided as inpatient services in accordance with the 2-midnight benchmark. Estimated LOS (days): 4 4 days is the estimated time the patient will need to remain in the hospital, assuming treatment plan goals are met and no additional complications. Post-Hospital Plan: Home Problem Qualifiers (1) Acute pancreatitis: Qualified Code: K85.20 - Alcohol-induced acute pancreatitis, unspecified complication status (2) HTN (hypertension): Qualified Code: I10 - Essential hypertension (3) Osteoarthritis: Qualified Code: M19.90 - Osteoarthritis, unspecified osteoarthritis type, unspecified site (4) Gout: Qualified Code: M10.9 - Gout, unspecified cause, unspecified chronicity, unspecified site (5) Lumbar back pain: Qualified Code: M54.5 - Chronic low back pain, unspecified back pain laterality , with sciatica presence unspecified (6) Allergy: Qualified Code: T78.40XA - Allergy, initial encounter Trina Marks MD Apr 30, 2016 10:18
--- NOTE | 2016-04-30 10:25 | HHI.GIFU ---
Subjective Remarks Up in chair. States she actually is feeling much better today. No nausea, vomiting. Asking for liquids. Does have a erythematous rash to bue, neck and trunk. States she started itching after the Morphine. (Brit Kim) Objective Vitals I&O Vital Signs Date Time Temp Pulse Resp B/P Pulse Ox O2 Delivery O2 Flow Rate FiO2 04/30/16 09:19 92 Nasal Cannula 5.00 04/30/16 08:00 84 04/30/16 08:00 97.9 86 17 153/68 91 04/30/16 07:00 Nasal Cannula 4.00 04/30/16 06:00 98 04/30/16 04:00 98.1 94 13 141/60 91 04/30/16 04:00 94 04/30/16 02:00 96 04/30/16 00:00 96 04/30/16 00:00 97.5 96 20 141/66 91 04/29/16 23:28 92 Nasal Cannula 4.00 04/29/16 22:00 94 04/29/16 20:00 108 04/29/16 20:00 98.2 105 16 142/61 92 04/29/16 19:15 92 Nasal Cannula 2.00 04/29/16 19:00 93 Nasal Cannula 4.00 04/29/16 18:00 92 Nasal Cannula 4.00 04/29/16 18:00 98.4 100 25 121/70 92 04/29/16 18:00 100 04/29/16 17:16 100 20 177/77 95 Nasal Cannula 2 04/29/16 15:06 93 Nasal Cannula 2.00 04/29/16 15:01 18 04/29/16 14:59 105 20 150/68 92 Room Air 04/29/16 12:39 16 04/29/16 12:27 98 Room Air 04/29/16 11:56 96 20 146/67 98 Room Air 04/29/16 11:46 97.9 74 16 164/70 95 I/O 04/29/16 04/29/16 04/29/16 04/30/16 04/30/16 04/30/16 06:59 14:59 22:59 06:59 14:59 22:59 Intake Total 363 ml 805 ml Output Total 1 ml Balance 363 ml 804 ml Intake IV Total 363 ml 805 ml Output Urine Total 1 ml # Voids 1 # Bowel Movements 0 0 Laboratory Laboratory Tests Test 04/29/16 04/29/16 04/29/16 04/29/16 12:00 14:45 14:55 16:11 White Blood Count 15.3 Red Blood Count 4.90 Hemoglobin 15.2 Hematocrit 44.9 Mean Corpuscular Volume 91.6 Mean Corpuscular Hemoglobin 31.0 Mean Corpuscular Hemoglobin 33.8 Concent Red Cell Distribution Width 13.2 Platelet Count 197 Mean Platelet Volume 8.6 Neutrophils (%) (Auto) 87.8 Lymphocytes (%) (Auto) 7.3 Monocytes (%) (Auto) 4.5 Eosinophils (%) (Auto) 0.1 Basophils (%) (Auto) 0.3 Neutrophils # (Auto) 13.4 Lymphocytes # (Auto) 1.1 Monocytes # (Auto) 0.7 Eosinophils # (Auto) 0.0 Basophils # (Auto) 0.0 CBC Comment DIFF FINAL Differential Comment Sodium Level 141 Potassium Level 3.7 Chloride Level 107 Carbon Dioxide Level 18.9 Anion Gap 15 Blood Urea Nitrogen 18 Creatinine 1.01 Estimat Glomerular Filtration 55 Rate Random Glucose 169 Lactic Acid Level 5.7 4.3 Calcium Level 9.2 Total Bilirubin 2.5 Aspartate Amino Transf 267 (AST/SGOT) Alanine Aminotransferase 253 (ALT/SGPT) Alkaline Phosphatase 145 Total Protein 7.7 Albumin 4.0 Lipase GREATER THAN 54246 Urine Color YELLOW Urine Turbidity CLEAR Urine pH 5.0 Urine Specific [place] 1.015 Urine Protein TRACE Urine Glucose (UA) NEG Urine Ketones 10 Urine Occult Blood NEG Urine Nitrite NEG Urine Bilirubin NEG Urine Urobilinogen LESS THAN 2.0 Urine Leukocyte Esterase MOD Urine RBC LESS THAN 1 Urine WBC 3 Urine Squamous Epithelial 1 Cells Urine Mucus FEW Microscopic Urinalysis Comment CULT NOT INDICATED Urine Opiates Screen POS Urine Barbiturates Screen NEG Urine Amphetamines Screen NEG Urine Benzodiazepines Screen NEG Urine Cocaine Screen NEG Urine Cannabinoids Screen NEG Magnesium Level 1.8 Direct Bilirubin 1.7 Lactate Dehydrogenase 563 C-Reactive Protein 2.05 Triglycerides Level 76 Ethyl Alcohol Level LESS THAN 3 Test 04/29/16 04/29/16 04/30/16 18:00 18:30 03:12 Nasal Screen MRSA (PCR) NEGATIVE Lactic Acid Level 4.3 White Blood Count 12.6 Red Blood Count 4.45 Hemoglobin 13.9 Hematocrit 41.2 Mean Corpuscular Volume 92.6 Mean Corpuscular Hemoglobin 31.3 Mean Corpuscular Hemoglobin 33.8 Concent Red Cell Distribution Width 13.3 Platelet Count 165 Mean Platelet Volume 8.4 Neutrophils (%) (Auto) 90.0 Lymphocytes (%) (Auto) 7.8 Monocytes (%) (Auto) 2.1 Eosinophils (%) (Auto) 0.0 Basophils (%) (Auto) 0.1 Neutrophils # (Auto) 11.4 Lymphocytes # (Auto) 1.0 Monocytes # (Auto) 0.3 Eosinophils # (Auto) 0.0 Basophils # (Auto) 0.0 CBC Comment DIFF FINAL Differential Comment Sodium Level 142 Potassium Level 3.5 Chloride Level 108 Carbon Dioxide Level 25.4 Anion Gap 9 Blood Urea Nitrogen 15 Creatinine 0.78 Estimat Glomerular Filtration 74 Rate Random Glucose 126 Calcium Level 8.2 Phosphorus Level 3.0 Magnesium Level 1.7 Total Bilirubin 2.9 Aspartate Amino Transf 243 (AST/SGOT) Alanine Aminotransferase 423 (ALT/SGPT) Alkaline Phosphatase 105 Total Protein 6.6 Albumin 3.2 Lipase 5756 Imaging Last Impressions Abdomen/Pelvis CT 04/29/16 1158 Signed Impressions: Service Date/Time: Friday, April 29, 2016 13:09 - CONCLUSION: Findings consistent with development of pancreatitis Reese Galvez MD Cholangiopancreatography MRI 04/29/16 0000 Signed Impressions: Service Date/Time: Friday, April 29, 2016 17:26 - CONCLUSION: Normal gallbladder and bile ducts. Somewhat prominent pancreas with indistinct margins suggesting pancreatitis less prominent than appreciated on today's CT scan. Trace amount of ascitic fluid in the upper abdomen. Reese Galvez MD Physical Exam HEENT: Normocephalic; atraumatic; no jaundice. CHEST: CTA. CARDIAC: RRR ABDOMEN: Soft, nondistended, mild tenderness; no hepatosplenomegaly; bowel sounds are present in all four quadrants. EXTREMITIES: No clubbing, cyanosis, or edema. SKIN: Erythematous rash to neck, trunk, and [employer]: No focal deficits; alert and oriented times three. (Brti Kim) Assessment and Plan Plan ASSESSMENT: - Acute pancreatitis, unclear etiology. She usually drinks 1-2 beers per day, but had more than usual last night ( 6 glasses of wine and 4 beers). She denies any new medications. She denies the use herbal supplements. She is adopted and does not know her family hx. Abdomen/Pelvis CT (04/29/16)-----> Findings consistent with development of pancreatitis. MRCP (04/29/16)------> Normal gallbladder and bile ducts. Somewhat prominent pancreas with indistinct margins suggesting pancreatitis less prominent than appreciated on today's CT scan. Trace amount of ascitic fluid in the upper abdomen. Lipase from 30, 000----> 5756. Clinically, feeling much improved. - Elevated LFTs. No prior hx of liver dz. Prior RONAK/Celiac dz in 2015 negative. Hepatitis profile pending. - Alcohol use- counselled - Leukocytosis- WBC 12.6. afebrile - HTN, Arthritis, Gout, Migraines per primary PLAN: - Clear liquids - Cont. IVF - Cont. PPI - Await IgG 4 level - Await Hepatitis panel - ASMA, AMA - AFP, Ceruloplasmin, Alpha 1 Antitrypsin - Ferritin, Iron saturation - Monitor labs - Alcohol cessation - Supportive care - Further recommendations to follow based on results of above - Pt seen and examined by Dr. Campuzano and myself and this note is written on his behalf (Brit Kim) Physician Comments Seen and examined, plan as above, pending work up for autoimmune cholangiopathy / pancreatitis, continue supportive care. (Geena Campuzano MD) Brit Kim Apr 30, 2016 10:25 Geena Campuzano MD Apr 30, 2016 11:02
[2016-04-30] MEDS ORDERED: diphenhydrAMINE HCL 50 MG CAP PO ONE (10:30)
[2016-04-30] MEDS ORDERED: diphenhydrAMINE HCL 25 MG CAP PO PRN (10:30)
[2016-04-30] MEDS: LOSARTAN 50 MG TAB PO SCH (10:33)
[2016-04-30] MEDS: ATENOLOL 50 MG TAB PO SCH (10:33)
[2016-04-30] MEDS: ASPIRIN 81 MG CHEW TAB PO SCH (10:33)
[2016-04-30] MEDS: HYDROmorphone HCL PF 1 MG/ML VIAL IV PUSH PRN (11:04)
--- NOTE | 2016-04-30 11:52 | EKG ---
Date Performed: 04/29/2016 Time Performed: 13:26:31 PTAGE: 65 years EKG: SINUS TACHYCARDIA NONSPECIFIC ST & T-WAVE ABNORMALITY ABNORMAL RHYTHM ECG Since PREVIOUS TRACING , no significant change noted PREVIOUS TRACIN12/24/2014 22.21 DOCTOR: Cedric Matt Interpretating Date/Time 04/30/2016 11:49:41
[2016-04-30 12:34] LABS: FERRITIN 1125 NG/ML (8-252); TRANSFERRIN IRON PROFILE 178 MG/DL (200-360)
[2016-05-01] VITALS (10 sets, daily range): BP systolic 123–169; BP diastolic 56–73; PULSE 73–80; RESP 20–25; TEMP 96.3–99.9; O2SAT 91–95
[2016-05-01 03:50] LABS: AUTOMATED NEUTROPHIL # 12.4 TH/MM3 (1.8-7.7); BASOPHIL % 0.3 % (0.0-2.0); EOSINOPHIL # 0.1 TH/MM3 (0-0.4); EOSINOPHIL % 0.6 % (0.0-4.0); HEMATOCRIT 35.8 % (35.0-46.0); HEMO FLAGS DIFF FINAL; LYMPH % 10.6 % (9.0-44.0); LYMPHOCYTE # 1.6 TH/MM3 (1.0-4.8); MEAN CELL VOLUME 92.8 FL (80.0-100.0); MEAN CORPUSCULAR HEMOGLOBIN 31.4 PG (27.0-34.0); MEAN CORPUSCULAR HGB CONC 33.8 % (32.0-36.0); MONO % 6.8 % (0.0-8.0); NEUT % 81.7 % (16.0-70.0); PLATELET COUNT 127 TH/MM3 (150-450); RED BLOOD COUNT 3.86 MIL/MM3 (4.00-5.30); RED CELL DISTRIBUTION WIDTH 13.4 % (11.6-17.2); WHITE BLOOD COUNT 15.1 TH/MM3 (4.0-11.0)
[2016-05-01 04:11] LABS: ANION GAP 10 MEQ/L (5-15); AST (GOT) 107 U/L (15-37); BICARBONATE 26.1 MEQ/L (21.0-32.0); BLOOD UREA NITROGEN 12 MG/DL (7-18); CHLORIDE 107 MEQ/L (98-107); GLOMERULAR FILTRATION RATE 83 ML/MIN (>89); POTASSIUM 3.7 MEQ/L (3.5-5.1); SODIUM (NA) 143 MEQ/L (136-145)
[2016-05-01 04:14] LABS: ALKALINE PHOSPHATASE 86 U/L (45-117); ALT (GPT) 254 U/L (10-53); TOTAL BILIRUBIN ADULT 2.7 MG/DL (0.2-1.0)
[2016-05-01] MEDS: LOSARTAN 50 MG TAB PO SCH (08:49)
[2016-05-01] MEDS: ATENOLOL 50 MG TAB PO SCH (08:49)
[2016-05-01] MEDS: ASPIRIN 81 MG CHEW TAB PO SCH (08:49)
[2016-05-01] MEDS: SODIUM CHLORIDE 0.9% FLUSH 5 ML FLUSH IV SCH ×2 (08:51→20:41)
[2016-05-01] MEDS: LACTATED RINGER'S 1000 ML INJ 1,000 ML IV SCH ×3 (08:51→16:20)
[2016-05-01] MEDS: DOCUSATE SODIUM 50 MG/SENNA 8.6 MG TAB PO SCH ×2 (08:51→20:41)
[2016-05-01] MEDS ORDERED: DOCUSATE SODIUM 50 MG/SENNA 8.6 MG TAB PO SCH (09:00)
[2016-05-01] MEDS: HYDROmorphone HCL PF 1 MG/ML VIAL IV PUSH PRN (09:08)
[2016-05-01] MEDS ORDERED: MAGNESIUM HYDROXIDE SUSP 30 ML CUP PO PRN (09:30)
[2016-05-01] MEDS ORDERED: MAGNESIUM HYDROXIDE SUSP 30 ML CUP PO ONE (09:30)
[2016-05-01] MEDS ORDERED: LORATADINE 10 MG TAB PO ONE (10:30)
--- NOTE | 2016-05-01 11:11 | HHI.FPPN ---
Subjective Remarks Patient seen and examined this morning. She says that she has been drinking water only, but does have several juices at bedside. States that she does not feel like eating or drinking anything other than water. She says that she is going to try drinking some of the juices today. She had some pain this morning and took IV Dilaudid, last dose was yesterday around 12 PM. She has not taken any of the by mouth pain medications because she says that one of the nurses told her it could cause bleeding of the stomach if she is not eating. She denies nausea or vomiting, chest pain or difficulty breathing. She has been on oxygen, 4 L nasal cannula with saturations 91-92%. She is not on oxygen at home. Patient complains of itching on her skin on the back of her neck, on her upper body. She is wearing socks, and has no itching of the feet. She first attributed the itching to the morphine but last received this 2 days ago. She did take Benadryl once and thinks it helped mildly. Still having itching. Asks for a topical cream. (Adriana Mcgrath MD) Objective Vitals Vital Signs Date Time Temp Pulse Resp B/P Pulse Ox O2 Delivery O2 Flow Rate FiO2 05/01/16 10:57 92 Nasal Cannula 4.00 05/01/16 08:00 76 05/01/16 08:00 98.3 76 24 169/73 91 05/01/16 07:00 Nasal Cannula 4.00 05/01/16 06:00 73 05/01/16 04:00 78 05/01/16 04:00 98.8 78 22 123/56 95 05/01/16 02:00 74 05/01/16 00:00 80 05/01/16 00:00 99.9 80 25 128/58 93 04/30/16 22:00 81 04/30/16 20:00 80 04/30/16 20:00 98.4 76 23 146/67 96 04/30/16 19:20 93 Nasal Cannula 5.00 04/30/16 19:00 92 Nasal Cannula 4.00 04/30/16 18:00 72 04/30/16 16:00 76 04/30/16 16:00 98.4 76 17 123/56 94 04/30/16 14:00 73 04/30/16 12:00 70 04/30/16 12:00 98.0 70 22 108/54 92 04/30/16 11:34 19 I/O 04/30/16 04/30/16 04/30/16 05/01/16 05/01/16 05/01/16 07:00 15:00 23:00 07:00 15:00 23:00 Intake Total 805 ml 934 ml 1187 ml 993 ml Output Total 1 ml Balance 804 ml 934 ml 1187 ml 993 ml Intake Oral 120 ml 240 ml 240 ml IV Total 805 ml 814 ml 947 ml 753 ml Output Urine Total 1 ml # Voids 1 2 2 # Bowel Movements 0 0 0 0 (Adriana Mcgrath MD) Result Diagram: 05/01/16 0320 05/01/16 0320 Imaging Last Impressions Abdomen/Pelvis CT 04/29/16 1158 Signed Impressions: Service Date/Time: Friday, April 29, 2016 13:09 - CONCLUSION: Findings consistent with development of pancreatitis Reese Galvez MD Cholangiopancreatography MRI 04/29/16 0000 Signed Impressions: Service Date/Time: Friday, April 29, 2016 17:26 - CONCLUSION: Normal gallbladder and bile ducts. Somewhat prominent pancreas with indistinct margins suggesting pancreatitis less prominent than appreciated on today's CT scan. Trace amount of ascitic fluid in the upper abdomen. Reese Galvez MD Objective Remarks GENERAL: Awake, alert, 55 year-old female who appears her stated age and in NAD sitting up in chair at bedside SKIN: Warm and dry. HEAD: Atraumatic. Normocephalic. EYES: Pupils equal and round. No scleral icterus. No injection CARDIOVASCULAR: Regular rate and rhythm. No murmur appreciated. RESPIRATORY: No accessory muscle use. Clear to auscultation. Breath sounds equal bilaterally. No wheezing, rhonchi or crackles. O2 saturation 92% on 4 L GASTROINTESTINAL: Abdomen soft, nontender. No guarding, no rebound tenderness or rigidity noted. MUSCULOSKELETAL: No obvious deformities. No clubbing. No cyanosis. No edema. NEUROLOGICAL: Awake and alert. No obvious cranial nerve deficits. Motor grossly within normal limits. Normal speech. PSYCHIATRIC: Appropriate mood and affect; insight and judgment normal. (Adriana Mcgrath MD) A/P Assessment and Plan 65-year-old female admitted previously in 2014 for acute pancreatitis presents to the ED with acute pancreatitis seen on CT of abdomen, with lipase elevated to >30,000, now significantly improved clinically with lipase down to 1396 Discharge Planning Transfer to medical floor today. Possible discharge in next 1-2 days pending clinical improvement. JUANW Dr. Marks (HoustonAdriana MD) Attending Attestation Patient seen and examined. Case reviewed and discussed with the resident team. Agree with plan of care as discussed with me and documented in the resident note. (Trina Marks MD) Problem List: (1) Acute pancreatitis Status: Acute Plan: CT abdomen showed pancreatitis with inflammatory changes extending into the mesentery but no obstructive pathology. Lipase on admission > 30,000, LFTs elevated at 267/253. Lactic acid 5.7-> 4.3. LDH 563. Bilirubin 2.5, direct bilirubin 1.7. Hepatitis profile negative - Labs 05/01: Lipase 1396, total bilirubin 2.7 - GI consulted, appreciate assistance. - MRCP negative. - LR at 125cc/hr - Zofran when necessary nausea - IgG 4 level pending - Pain control: Dilaudid 1 mg IV q4hr PRN pain 7-10 Mona 7.5/325 2 tablets PO PRN pain 1-6. Counseled patient she may have some GI upset from taking on an empty stomach, but no significant increased risk of bleeding. -Shelly-Colace scheduled one tablet twice a day -Milk of magnesia 30 mL daily when necessary constipation (2) Requires supplemental oxygen Status: Acute Plan: Requiring oxygen, 4 L nasal cannula with saturations 91-92%. She was not on oxygen at home. - Chest x-ray ordered to evaluate for pleural effusions, as these can occur with pancreatitis - Respiratory home O2 walk test (3) Allergy Status: Acute Plan: Erythema and pruritus after morphine IV over both arms and upper torso, last dose 04/29. Switched to Dilaudid. She had morphine last visit to hospital a year ago without incident. -Patient complaining of itching 05/01, which she attributes to the morphine given on 04/29. However, may also be a component of an allergic reaction ( possibly to to laundry soaps used on hospital bedding, or other allergic reaction) -Treat with Claritin 10 mg daily, first dose 05/01 -Triamcinolone 0.1% cream every 6 hours to skin for itching (4) HTN (hypertension) Status: Chronic Plan: Blood pressure 123/56 - Continue home medications of Cozaar 50 daily, and atenolol 50 daily - Hydralazine 10 mg by mouth every 4 hours when necessary blood pressure greater than 160/90 (5) Osteoarthritis Status: Chronic Plan: Continue pain medication as above (6) Gout Status: Chronic Plan: Not on medication currently. Patient requested a trial off of allopurinol in February 2016. Last flare up years ago (7) Lumbar back pain Status: Chronic Plan: Pain medications as above. (8) Alcohol use Status: Chronic Plan: Counseled on cessation daily, as this could be contributing to development of pancreatitis. -Discussed again 05/01 that alcohol can be the cause of pancreatitis and abstaining would be barnhart. Patient voices her understanding and is in agreement (9) Nutrition, metabolism, and development symptoms Status: Acute Plan: Fluids: LR 125 cc/hr Electrolytes: Normal, continue to monitor Diet: Clear liquid diet DVT PPx: SCDs. Discussed with patient regarding starting heparin for DVT prophylaxis, but patient declines. She states that she is going to be more ambulatory, and that when she is in bed she uses the SCDs. (Adriana Mcgrath MD) Problem Qualifiers (1) Acute pancreatitis: Qualified Code: K85.20 - Alcohol-induced acute pancreatitis, unspecified complication status (2) Allergy: Qualified Code: T78.40XA - Allergy, initial encounter (3) HTN (hypertension): Qualified Code: I10 - Essential hypertension (4) Osteoarthritis: Qualified Code: M19.90 - Osteoarthritis, unspecified osteoarthritis type, unspecified site (5) Gout: Qualified Code: M10.9 - Gout, unspecified cause, unspecified chronicity, unspecified site (6) Lumbar back pain: Qualified Code: M54.5 - Chronic low back pain, unspecified back pain laterality , with sciatica presence unspecified Adriana Mcgrath MD May 01, 2016 11:10 Trina Marks MD May 02, 2016 13:40
--- NOTE | 2016-05-01 11:52 | RADRPT ---
EXAM DATE/TIME: 05/01/2016 11:35 [facility] COMPARISON: CT ABDOMEN & PELVIS W/O CONTRAST, April 29, 2016, 13:09. INDICATIONS : No chest pain, no cough, short of breath, evaluate pleural effusion MEDICAL HISTORY : Pancreatitis. SURGICAL HISTORY : Fusion, lumbar. Hysterectomy. ENCOUNTER: Subsequent ACUITY: 2 days PAIN SCORE: 0/10 LOCATION: Bilateral chest FINDINGS: PA and lateral views of the chest demonstrate the lungs to be symmetrically aerated without evidence of mass, infiltrate or effusion. There are some linear peripheral changes in the left lung base just atelectasis and/or scarring. The cardiomediastinal contours are unremarkable. Osseous structures ar e intact. CONCLUSION: 1. Left lower lung atelectasis versus scarring. 2. Otherwise, the lungs are grossly clear. Jimy Phoenix MD on May 01, 2016 at 11:49 Board Certified Radiologist. This report was verified electronically.
[2016-05-01] MEDS: TRIAMCINOLONE ACETONIDE 0.1% CREAM 15 GM TOPICAL SCH ×2 (12:04→16:26)
[2016-05-01] MEDS ORDERED: LORA-361 PO (15:21)
[2016-05-01] MEDS ORDERED: TRIA.1%T TOPICAL (15:21)
[2016-05-01] MEDS ORDERED: SENN1TAB PO (15:21)
--- NOTE | 2016-05-01 15:22 | HHI.DCPOC ---
Discharge Care Plan Diagnosis: (1) Acute pancreatitis (2) Gout (3) Osteoarthritis (4) HTN (hypertension) (5) Allergy (6) Itchy skin (7) Requires supplemental oxygen (8) Hx of gout (9) Lumbar back pain Goals to Promote Your Health * To prevent worsening of your condition and complications * To maintain your health at the optimal level Directions to Meet Your Goals Take your medications as prescribed Follow your dietary instruction Follow activity as directed Keep your appointments as scheduled Take your immunizations and boosters as scheduled If your symptoms worsen call your PCP, if no PCP go to Urgent Care Center or Emergency Room Smoking is Dangerous to Your Health. Avoid second hand smoke Call the 24-hour hour crisis hotline for domestic abuse at Adriana Mcgrath MD May 01, 2016 15:22
[2016-05-01] MEDS ORDERED: OXYGENTANK NAS.CANULA (15:25)
[2016-05-02] VITALS (9 sets, daily range): BP systolic 132–172; BP diastolic 58–77; PULSE 76–88; RESP 18–20; TEMP 97.6–100.2; O2SAT 90–95
[2016-05-02] MEDS: TRIAMCINOLONE ACETONIDE 0.1% CREAM 15 GM TOPICAL SCH ×5 (01:19→22:28)
[2016-05-02 05:12] LABS: AUTOMATED NEUTROPHIL # 12.4 TH/MM3 (1.8-7.7); BASOPHIL % 0.2 % (0.0-2.0); EOSINOPHIL # 0.2 TH/MM3 (0-0.4); EOSINOPHIL % 1.2 % (0.0-4.0); HEMATOCRIT 33.4 % (35.0-46.0); HEMO FLAGS DIFF FINAL; LYMPH % 6.4 % (9.0-44.0); MEAN CELL VOLUME 92.8 FL (80.0-100.0); MEAN CORPUSCULAR HEMOGLOBIN 31.2 PG (27.0-34.0); MEAN CORPUSCULAR HGB CONC 33.7 % (32.0-36.0); MONO % 8.6 % (0.0-8.0); NEUT % 83.6 % (16.0-70.0); PLATELET COUNT 122 TH/MM3 (150-450); RED CELL DISTRIBUTION WIDTH 13.3 % (11.6-17.2); WHITE BLOOD COUNT 14.9 TH/MM3 (4.0-11.0)
[2016-05-02 05:40] LABS: ALKALINE PHOSPHATASE 123 U/L (45-117); ALT (GPT) 270 U/L (10-53); ANION GAP 9 MEQ/L (5-15); AST (GOT) 162 U/L (15-37); BICARBONATE 26.4 MEQ/L (21.0-32.0); BLOOD UREA NITROGEN 9 MG/DL (7-18); CHLORIDE 104 MEQ/L (98-107); GLOMERULAR FILTRATION RATE 100 ML/MIN (>89); POTASSIUM 3.6 MEQ/L (3.5-5.1); SODIUM (NA) 139 MEQ/L (136-145); TOTAL BILIRUBIN ADULT 2.3 MG/DL (0.2-1.0)
[2016-05-02] MEDS: LACTATED RINGER'S 1000 ML INJ 1,000 ML IV SCH ×3 (05:44→23:10)
[2016-05-02] MEDS: HYDROmorphone HCL PF 1 MG/ML VIAL IV PUSH PRN ×3 (07:12→21:50)
[2016-05-02] MEDS: SODIUM CHLORIDE 0.9% FLUSH 5 ML FLUSH IV SCH ×2 (09:00→19:54)
[2016-05-02] MEDS: ATENOLOL 50 MG TAB PO SCH (09:13)
[2016-05-02] MEDS: LOSARTAN 50 MG TAB PO SCH (09:13)
[2016-05-02] MEDS: LORATADINE 10 MG TAB PO SCH (09:13)
[2016-05-02] MEDS: DOCUSATE SODIUM 50 MG/SENNA 8.6 MG TAB PO SCH (09:13)
[2016-05-02] MEDS: ASPIRIN 81 MG CHEW TAB PO SCH (09:13)
[2016-05-02] MEDS ORDERED: INFLUENZA VIRUS VACCINE (QUADRIVALENT) 0.5 ML SYR IM ONE (10:00)
[2016-05-02] MEDS ORDERED: DOCUSATE SODIUM 50 MG/SENNA 8.6 MG TAB PO PRN (10:15)
--- NOTE | 2016-05-02 10:21 | HHI.FPPN ---
Subjective Remarks Patient said that she did well yesterday. She was up and walking around, and had some shortness of breath. Her abdominal pain was well-controlled overnight , however this morning around 6 AM it became worse, reaching a level of 6 out of 10. The patient seemed upset with this. She has not been taking her when necessary [place]. She was unable to tolerate a liquid diet yesterday, and only has been drinking water. She reports episodes of loose stools, and she continues to take Shelly-Colace twice a day. (Parminder Alcazar MD R2) Objective Vitals Vital Signs Date Time Temp Pulse Resp B/P Pulse Ox O2 Delivery O2 Flow Rate FiO2 05/02/16 09:00 77 05/02/16 09:00 Nasal Cannula 3.00 Humidified 05/02/16 08:00 99.4 81 19 132/58 90 05/02/16 07:42 18 05/02/16 04:00 98.8 83 18 138/61 92 05/02/16 00:00 97.9 88 20 145/70 92 05/01/16 20:41 77 05/01/16 20:41 Nasal Cannula 3.00 Humidified 05/01/16 20:00 96.3 77 20 136/63 92 05/01/16 17:22 98.7 80 20 134/61 92 05/01/16 17:20 18 05/01/16 13:33 3.00 05/01/16 12:00 98.8 76 23 125/58 95 05/01/16 10:57 92 Nasal Cannula 4.00 I/O 05/01/16 05/01/16 05/01/16 05/02/16 05/02/16 05/02/16 06:59 14:59 22:59 06:59 14:59 22:59 Intake Total 993 ml 1108 ml 314 ml 822 ml Output Total 250 ml Balance 993 ml 1108 ml 314 ml 572 ml Intake Oral 240 ml 240 ml 240 ml IV Total 753 ml 868 ml 582 ml Packed Cells 314 ml Output Urine Total 250 ml # Voids 2 1 # Bowel Movements 0 0 1 (Parminder Alcazar MD R2) Result Diagram: 05/02/165 05/02/16404 Other Results Vital Signs Date Time Temp Pulse Resp B/P Pulse Ox O2 Delivery O2 Flow Rate FiO2 05/02/16 09:00 77 05/02/16 09:00 Nasal Cannula 3.00 Humidified 05/02/16 08:00 99.4 19 132/58 90 Imaging Last 72 hours Impressions Chest X-Ray 05/01/16 0000 Signed Impressions: Service Date/Time: Sunday, May 01, 2016 11:35 - CONCLUSION: 1. Left lower lung atelectasis versus scarring. 2. Otherwise, the lungs are grossly clear. Jimy Phoenix MD Abdomen/Pelvis CT 04/29/16 1158 Signed Impressions: Service Date/Time: Friday, April 29, 2016 13:09 - CONCLUSION: Findings consistent with development of pancreatitis Reese Galvez MD Objective Remarks GENERAL: Awake, alert, 55 year-old female who appears her stated age and in NAD sitting up in chair at bedside SKIN: Warm and dry. HEAD: Atraumatic. Normocephalic. EYES: Pupils equal and round. No scleral icterus. No injection CARDIOVASCULAR: Regular rate and rhythm. No murmur appreciated. RESPIRATORY: No accessory muscle use. Clear to auscultation. Breath sounds equal bilaterally. No wheezing, rhonchi or crackles. O2 saturation 92% on 2 L GASTROINTESTINAL: Abdomen soft, tender. No guarding, no rebound tenderness or rigidity noted. MUSCULOSKELETAL: No obvious deformities. No clubbing. No cyanosis. No edema. NEUROLOGICAL: Awake and alert. No obvious cranial nerve deficits. Motor grossly within normal limits. Normal speech. PSYCHIATRIC: Appropriate mood and affect; insight and judgment normal. (Parminder Alcazar MD R2) Urinary Catheter: No (Trina Marks MD) Vascular Central Line Catheter: No (Trina Marks MD) A/P Assessment and Plan 65-year-old female admitted previously in 2014 for acute pancreatitis presents to the ED with acute pancreatitis seen on CT of abdomen, with lipase elevated to >30,000, now significantly improved clinically with lipase down to 300. Discharge Planning Possible discharge in next 1-2 days pending clinical improvement. IRLANDA Marks (Parminder Alcazar MD R2) Attending Attestation Patient seen and examined. Case reviewed and discussed with the resident team. Agree with plan of care as discussed with me and documented in the resident note and by me. (Trina Marks MD) Problem List: (1) Acute pancreatitis Status: Acute Plan: CT abdomen showed pancreatitis with inflammatory changes extending into the mesentery but no obstructive pathology. Lipase on admission > 30,000, LFTs elevated at 267/253. Lactic acid 5.7-> 4.3. LDH 563. Bilirubin 2.5, direct bilirubin 1.7. Hepatitis profile negative - Labs 05/02: Lipase 388, total bilirubin 2.7 --> 2.3 - GI consulted, appreciate assistance. - MRCP negative. - LR at 125cc/hr - Zofran when necessary nausea - IgG 4 level pending - Pain control: Dilaudid 1 mg IV q4hr PRN pain 7-10 [place] 7.5/325 2 tablets PO PRN pain 1-6 (scheduled). Counseled patient she may have some GI upset from taking on an empty stomach, but no significant increased risk of bleeding. -Shelly-Colace scheduled one tablet twice a day - discontinue secondary to loose stools. (2) Requires supplemental oxygen Status: Acute Plan: Requiring oxygen, 2 L nasal cannula with saturations 91-92%. She was not on oxygen at home. - Chest x-ray to evaluate for pleural effusions showed a left lower lobe atelectasis versus scarring. Otherwise lungs are grossly clear. - Respiratory home O2 walk test (3) Allergy Status: Acute Plan: Erythema and pruritus after morphine IV over both arms and upper torso, last dose 04/29. Switched to Dilaudid. She had morphine last visit to hospital a year ago without incident. -Patient complaining of itching 05/01, which she attributes to the morphine given on 04/29. However, may also be a component of an allergic reaction ( possibly to to laundry soaps used on hospital bedding, or other allergic reaction) -Treat with Claritin 10 mg daily, first dose 05/01 -Triamcinolone 0.1% cream every 6 hours to skin for itching - this has helped significantly. (4) HTN (hypertension) Status: Chronic Plan: Blood pressure 123/56 - Continue home medications of Cozaar 50 daily, and atenolol 50 daily - Hydralazine 10 mg by mouth every 4 hours when necessary blood pressure greater than 160/90 (5) Osteoarthritis Status: Chronic Plan: Continue pain medication as above (6) Gout Status: Chronic Plan: Not on medication currently. Patient requested a trial off of allopurinol in February 2016. Last flare up years ago (7) Lumbar back pain Status: Chronic Plan: Pain medications as above. (8) Alcohol use Status: Chronic Plan: Counseled on cessation daily, as this could be contributing to development of pancreatitis. -Discussed again 05/01 that alcohol can be the cause of pancreatitis and abstaining would be barnhart. Patient voices her understanding and is in agreement (9) Nutrition, metabolism, and development symptoms Status: Acute Plan: Fluids: LR 125 cc/hr Electrolytes: Normal, continue to monitor Diet: Clear liquid diet DVT PPx: SCDs. Discussed with patient regarding starting heparin for DVT prophylaxis, but patient declines. She states that she is going to be more ambulatory, and that when she is in bed she uses the SCDs. (Parminder Alcazar MD R2) Problem List: (1) Acute pancreatitis Status: Acute Plan: CT abdomen showed pancreatitis with inflammatory changes extending into the mesentery but no obstructive pathology. Lipase on admission > 30,000, LFTs elevated at 267/253. Lactic acid 5.7-> 4.3. LDH 563. Bilirubin 2.5, direct bilirubin 1.7. Hepatitis profile negative - Labs 05/02: Lipase 388, total bilirubin 2.7 --> 2.3 - GI consulted, appreciate assistance. - MRCP negative. - LR at 125cc/hr, she still is not taking much po "only one cup of water yesterday", will cut iv fluids once she can take better po - Zofran when necessary nausea - IgG 4 level pending - Pain control: Dilaudid 1 mg IV q4hr PRN pain 7-10 [place] 7.5/325 2 tablets PO PRN pain 1-6 (scheduled). Counseled patient she may have some GI upset from taking on an empty stomach, but no significant increased risk of bleeding. She states her pain is well controlled now though it was worse overnight -Shelly-Colace scheduled one tablet twice a day - discontinue secondary to loose stools. (2) Requires supplemental oxygen Status: Acute Plan: Requiring oxygen, 2 L nasal cannula with saturations 91-92%. She was not on oxygen at home. - Chest x-ray to evaluate for pleural effusions showed a left lower lobe atelectasis versus scarring. Otherwise lungs are grossly clear. - Respiratory home O2 walk test prior to D/C. encourage incentive spirometer (3) Allergy Status: Acute Plan: Erythema and pruritus after morphine IV over both arms and upper torso, last dose 04/29. Switched to Dilaudid. She had morphine last visit to hospital a year ago without incident. -Patient complaining of itching 05/01, which she attributes to the morphine given on 04/29. However, may also be a component of an allergic reaction ( possibly to to laundry soaps used on hospital bedding, or other allergic reaction) -Treat with Claritin 10 mg daily, first dose 05/01 -Triamcinolone 0.1% cream every 6 hours to skin for itching - this has helped significantly. (4) HTN (hypertension) Status: Chronic Plan: Blood pressure 123/56 - Continue home medications of Cozaar 50 daily, and atenolol 50 daily - Hydralazine 10 mg by mouth every 4 hours when necessary blood pressure greater than 160/90 (5) Osteoarthritis Status: Chronic Plan: Continue pain medication as above (6) Gout Status: Chronic Plan: Not on medication currently. Patient requested a trial off of allopurinol in February 2016. Last flare up years ago (7) Lumbar back pain Status: Chronic Plan: Pain medications as above. (8) Alcohol use Status: Chronic Plan: Counseled on cessation daily, as this could be contributing to development of pancreatitis. -Discussed again 05/01 that alcohol can be the cause of pancreatitis and abstaining would be barnhart. Patient voices her understanding and is in agreement (9) Nutrition, metabolism, and development symptoms Status: Acute Plan: Fluids: LR 125 cc/hr Electrolytes: Normal, continue to monitor Diet: Clear liquid diet DVT PPx: SCDs. Discussed with patient regarding starting heparin for DVT prophylaxis, but patient declines. She states that she is going to be more ambulatory, and that when she is in bed she uses the SCDs. Declines any anticoagulation today as well (10) Anxiety and depression Status: Acute Plan: Her daughter is in the room with her and states her mother has had some anxiety and depression especially over her wrist fracture and being out of work. she doesn't sleep at home and reports "being up at night worrying about things". Her daughter states she did wonderfully on lexapro as she had the same sorts of problems and she and her mom requested starting that med. Will begin at a low dose of 10 mg. No QT prolongation on her recent EKG. (Trina Marks MD) Problem Qualifiers (1) Acute pancreatitis: Qualified Code: K85.20 - Alcohol-induced acute pancreatitis, unspecified complication status (2) Allergy: Qualified Code: T78.40XA - Allergy, initial encounter (3) HTN (hypertension): Qualified Code: I10 - Essential hypertension (4) Osteoarthritis: Qualified Code: M19.90 - Osteoarthritis, unspecified osteoarthritis type, unspecified site (5) Gout: Qualified Code: M10.9 - Gout, unspecified cause, unspecified chronicity, unspecified site (6) Lumbar back pain: Qualified Code: M54.5 - Chronic low back pain, unspecified back pain laterality , with sciatica presence unspecified Parminder Alcazar MD R2 May 02, 2016 10:21 Trina Marks MD May 02, 2016 13:38
[2016-05-02] MEDS: ESCITALOPRAM OXALATE 10 MG TAB PO SCH (13:58)
[2016-05-02] MEDS: ACETAMINOPHEN/HYDROcodone 325 MG/7.5 MG TAB PO SCH ×2 (14:30→19:53)
[2016-05-02] MEDS: hydrALAZINE HCL 10 MG TAB PO PRN (15:23)
[2016-05-02 23:55] LABS: MITOCHONDRIAL ABS LESS THAN 20.0 U (())
[2016-05-03] VITALS (7 sets, daily range): BP systolic 127–181; BP diastolic 63–83; PULSE 64–80; RESP 17–21; TEMP 97.3–99; O2SAT 91–93
[2016-05-03] MEDS: ACETAMINOPHEN/HYDROcodone 325 MG/7.5 MG TAB PO SCH ×2 (02:26→07:15)
[2016-05-03] MEDS: TRIAMCINOLONE ACETONIDE 0.1% CREAM 15 GM TOPICAL SCH ×2 (04:56→12:13)
[2016-05-03] MEDS: LACTATED RINGER'S 1000 ML INJ 1,000 ML IV SCH (05:29)
[2016-05-03] MEDS: SODIUM CHLORIDE 0.9% FLUSH 5 ML FLUSH IV SCH ×2 (07:57→20:12)
[2016-05-03] MEDS: ESCITALOPRAM OXALATE 10 MG TAB PO SCH (07:57)
[2016-05-03] MEDS: LOSARTAN 50 MG TAB PO SCH (07:57)
[2016-05-03] MEDS: LORATADINE 10 MG TAB PO SCH (07:57)
[2016-05-03] MEDS: ATENOLOL 50 MG TAB PO SCH (07:57)
[2016-05-03] MEDS: ASPIRIN 81 MG CHEW TAB PO SCH (07:57)
[2016-05-03] MEDS ORDERED: ACETAMINOPHEN/HYDROcodone 325 MG/5 MG TAB PO PRN (10:45)
[2016-05-03] MEDS ORDERED: RESP: ALBUTEROL 2.5 MG/IPRATROPIUM 0.5 MG NEB (PRN) NEB (11:30)
[2016-05-03] MEDS ORDERED: RESP: ALBUTEROL 2.5 MG/IPRATROPIUM 0.5 MG NEB (SCH) NEB ONE (11:30)
--- NOTE | 2016-05-03 12:25 | RADRPT ---
EXAM DATE/TIME: 05/03/2016 12:05 [facility] COMPARISON: CHEST SINGLE AP, December 24, 2014, 6:10. INDICATIONS : Shortness of breath. MEDICAL HISTORY : Pancreatitis. SURGICAL HISTORY : Fusion, lumbar. ENCOUNTER: Subsequent ACUITY: 3 days PAIN SCORE: 0/10 LOCATION: Bilateral chest FINDINGS: There is streaky basilar airspace disease within both lower lobes. No definite effusions. Cardiomegal y. Osseous structures are intact. CONCLUSION: Basilar airspace disease. Laci Celestin MD on May 03, 2016 at 12:23 Board Certified Radiologist. This report was verified electronically.
--- NOTE | 2016-05-03 14:11 | HHI.FPPN ---
Subjective Remarks Delay documentation. Patient seen around 10 AM. No acute events overnight. Vital signs unremarkable except for) episodes of elevated BP. This morning patient states that she feels well and has no abdominal pain however she did have abdominal pain last night. Continues to have a decrease in appetite. Was able to consume a liquid diet but did become nauseous afterwards but without vomiting. Patient continues to require 34 L of oxygen via nasal cannula and have shortness of breath when walking just to the bathroom. This is not associated with any chest pain. She denies a history of COPD, smoking, asthma. No prior history of requiring oxygen. (Krystle Whitehead MD R2) Objective Vitals Vital Signs Date Time Temp Pulse Resp B/P Pulse Ox O2 Delivery O2 Flow Rate FiO2 05/03/16 12:00 98.1 75 18 150/71 91 05/03/16 08:00 98.6 80 17 146/65 91 05/03/16 07:47 Nasal Cannula 4.00 05/03/16 04:33 92 Nasal Cannula 3.00 05/03/16 00:00 99.0 78 21 134/66 92 05/02/16 21:30 Nasal Cannula 4.00 05/02/16 20:30 90 Nasal Cannula 4.00 05/02/16 20:00 97.6 84 18 172/77 95 05/02/16 16:00 100.2 80 18 164/70 91 05/02/16 15:00 80 I/O 05/02/16 05/02/16 05/02/16 05/03/16 05/03/16 05/03/16 06:59 14:59 22:59 06:59 14:59 22:59 Intake Total 822 ml 1623 ml 1240 ml 1120 ml Output Total 250 ml 800 ml Balance 572 ml 823 ml 1240 ml 1120 ml Intake Oral 240 ml 829 ml 240 ml 120 ml IV Total 582 ml 794 ml 1000 ml 1000 ml Output Urine Total 250 ml 800 ml # Voids 2 1 # Bowel Movements 1 0 0 0 (Krystle Whitehead MD R2) Result Diagram: 05/02/1640405/02/16404 Objective Remarks GENERAL: Awake, alert, in no acute distress SKIN: Warm and dry. CARDIOVASCULAR: Regular rate and rhythm. No murmur appreciated. RESPIRATORY: No accessory muscle use. Bilateral crackles diffusely. On nasal cannula. MUSCULOSKELETAL: No obvious deformities. No clubbing. No cyanosis. No edema. NEUROLOGICAL: Awake and alert. Motor grossly within normal limits. Normal speech. PSYCHIATRIC: Appropriate mood. Slightly flat affect; insight and judgment normal. (Krystle Whitehead MD R2) A/P Assessment and Plan 65-year-old female admitted previously in 2014 for acute pancreatitis presents to the ED with acute pancreatitis seen on CT of abdomen, with lipase elevated to >30,000 but now significantly improved. Discharge Planning Pending improvement in respiratory status DW Dr. Marks (Krystle Whitehead MD R2) Attending Attestation Patient seen and examined. Case reviewed and discussed with the resident team. Agree with plan of care as discussed with me and documented in the resident note. (Trina Marks MD) Problem List: (1) Acute pancreatitis Status: Resolved Plan: CT abdomen showed pancreatitis with inflammatory changes extending into the mesentery but no obstructive pathology. Lipase on admission > 30,000. Also found to have elevated LFTs and lactic acid. -Elevated Lipase has resolved -LFTs remain elevated, Hepatitis panel negative -Continues to have limited PO intake, will advance as tolerated. GI consulted, appreciate assistance. * Acute pancreatitis etiology unclear * MRCP negative. * pending work up for autoimmune cholangiopathy/pancreatitis Medications: * Fluids decreased to help stimulate thirst, see rate below * [place] 5/325 PRN pain4-10 * Dilaudid 1mg IV [place] (2) Requires supplemental oxygen Status: Acute Plan: Requiring oxygen, 3-4 L nasal cannula with saturations 91-92%. She was not on oxygen at home. Etiology unclear. Suspected antitrypsin deficiency is low as patient has adequate levels. Is at risk for pleural effusions due to pancreatitis but chest x-rays 2 have been negative. Likely due to atelectasis at this time. -Failed walk test, will require home O2 -PT ordered as is suspected that patient is not taking adequate rest despite incentive spirometry Imaging: * CXR 05/03/16: Bibasilar airspace disease * CXR 05/01: Left lower lung atelectasis versus scarring (3) Allergy Status: Resolved Plan: Erythema and pruritus after morphine IV. However, may also be a component of an allergic reaction (possibly to to laundry soaps used on hospital bedding, or other allergic reaction). Symptoms now resolved -Treat with Claritin 10 mg daily, first dose 05/01 -Triamcinolone 0.1% cream PRN q6 for itching (4) HTN (hypertension) Status: Chronic Plan: Intermittent episodes elevated BP will closely monitor and consider increasing medications as indicated - Continue home medications of Cozaar 50 daily, and atenolol 50 daily - Hydralazine 10 mg by mouth every 4 hours when necessary blood pressure greater than 160/90 (5) Alcohol use Status: Chronic Plan: Counseled on cessation daily, as this could be contributing to development of pancreatitis. -Discussed again 05/01 that alcohol can be the cause of pancreatitis and abstaining would be [place]. Patient voices her understanding and is in agreement (6) Anxiety and depression Status: Acute Plan: Per daughter, mother has had some anxiety depression after injury just limited her ability to work. Daughter reports that patient did well with Lexapro -Begin at a low dose of 10 mg. No QT prolongation on her recent EKG. (7) Nutrition, metabolism, and development symptoms Status: Acute Plan: Fluids: none Electrolytes: Normal, continue to monitor Diet: Clear liquid diet, okay to have crackers DVT PPx: SCDs. Discussed with patient regarding starting heparin for DVT prophylaxis, but patient declines. She states that she is going to be more ambulatory, and that when she is in bed she uses the SCDs. (Krystle Whitehead MD R2) Problem Qualifiers (1) Acute pancreatitis: Qualified Code: K85.20 - Alcohol-induced acute pancreatitis, unspecified complication status (2) Allergy: Qualified Code: T78.40XA - Allergy, initial encounter (3) HTN (hypertension): Qualified Code: I10 - Essential hypertension Krystle Whitehead MD R2 May 03, 2016 14:11 Trina Marks MD May 04, 2016 11:33 Problem Qualifiers (1) Acute pancreatitis: Qualified Code: K85.20 - Alcohol-induced acute pancreatitis, unspecified complication status (2) Allergy: Qualified Code: T78.40XA - Allergy, initial encounter (3) HTN (hypertension): Qualified Code: I10 - Essential hypertension (4) Osteoarthritis: Qualified Code: M19.90 - Osteoarthritis, unspecified osteoarthritis type, unspecified site (5) Gout: Qualified Code: M10.9 - Gout, unspecified cause, unspecified chronicity, unspecified site (6) Lumbar back pain: Qualified Code: M54.5 - Chronic low back pain, unspecified back pain laterality , with sciatica presence unspecified Krystle Whitehead MD R2 May 03, 2016 14:11
[2016-05-03] MEDS: HYDROmorphone HCL PF 1 MG/ML VIAL IV PUSH PRN (17:11)
[2016-05-03] MEDS ORDERED: TRIAMCINOLONE ACETONIDE 0.1% CREAM 15 GM TOPICAL PRN (18:00)
[2016-05-04] VITALS (7 sets, daily range): BP systolic 137–190; BP diastolic 64–87; PULSE 64–80; RESP 17–22; TEMP 96.7–99.6; O2SAT 93–96
[2016-05-04 05:54] LABS: AUTOMATED NEUTROPHIL # 13.3 TH/MM3 (1.8-7.7); BASOPHIL % 0.2 % (0.0-2.0); EOSINOPHIL # 0.6 TH/MM3 (0-0.4); EOSINOPHIL % 3.4 % (0.0-4.0); LYMPH % 8.9 % (9.0-44.0); LYMPHOCYTE # 1.5 TH/MM3 (1.0-4.8); MEAN CELL VOLUME 92.2 FL (80.0-100.0); MEAN CORPUSCULAR HEMOGLOBIN 31.2 PG (27.0-34.0); MEAN CORPUSCULAR HGB CONC 33.9 % (32.0-36.0); MONO % 9.7 % (0.0-8.0); NEUT % 77.8 % (16.0-70.0); PLATELET COUNT 188 TH/MM3 (150-450); RED BLOOD COUNT 3.69 MIL/MM3 (4.00-5.30); RED CELL DISTRIBUTION WIDTH 13.6 % (11.6-17.2); WHITE BLOOD COUNT 17.2 TH/MM3 (4.0-11.0)
[2016-05-04 06:02] LABS: HEMO FLAGS AUTO DIFF
[2016-05-04 06:14] LABS: ALT (GPT) 304 U/L (10-53); ANION GAP 8 MEQ/L (5-15); AST (GOT) 157 U/L (15-37); BICARBONATE 28.7 MEQ/L (21.0-32.0); BLOOD UREA NITROGEN 9 MG/DL (7-18); CHLORIDE 101 MEQ/L (98-107); GLOMERULAR FILTRATION RATE 98 ML/MIN (>89); POTASSIUM 3.2 MEQ/L (3.5-5.1); SODIUM (NA) 138 MEQ/L (136-145)
[2016-05-04 06:16] LABS: ALKALINE PHOSPHATASE 180 U/L (45-117); TOTAL BILIRUBIN ADULT 1.7 MG/DL (0.2-1.0)
[2016-05-04] MEDS ORDERED: POTASSIUM CHLORIDE 20 MEQ CONTROLLED RELEASE TAB PO ONE (08:30)
[2016-05-04 08:44] LABS: BANDS 19 % (0-6); BASOPHILS 1 % (0-2); EOSINOPHILS 1 % (0-4); MYELOCYTES 2 % (0-0); NEUTROPHIL # MANUAL DIFF 13.6 TH/MM3 (1.8-7.7); POLYS (SEG NEUTROPHILS) 58 % (16-70); WBC DIFF SAMPLE 100
[2016-05-04 08:45] LABS: PLATELET ESTIMATE SMEAR NORMAL (NORMAL); PLATELET MORPHOLOGY NORMAL (NORMAL); SCAN/DIFF FINAL DIFF MANUAL
--- NOTE | 2016-05-04 08:49 | HHI.FPPN ---
Subjective Remarks Patient seen and examined this morning. Tolerating clear diet without nausea or vomiting. States she is able to walk around the room. She says that they gave her an oxygen tank yesterday, but this is too large for her to be able to carry up to 2 flights of stairs and there is no elevator where she lives. Unsure if has a history of sleep apnea, but states she does snore and feels tired most of the day even when she gets a good night's rest. Denies stopping breathing when she is sleeping, Denies chest pain, shortness of breath, fevers, chills, or constipation. Says that she still having some loose stools, but is able to make it to the bathroom in time, and that this is not worsening. (Adriana Mcgrath MD) Objective Vitals Vital Signs Date Time Temp Pulse Resp B/P Pulse Ox O2 Delivery O2 Flow Rate FiO2 05/04/16 08:47 93 Nasal Cannula 4.00 05/04/16 08:00 96.7 72 17 153/70 93 05/04/16 00:00 97.8 75 18 137/64 93 05/03/16 21:20 93 Nasal Cannula 4.00 05/03/16 20:13 93 Nasal Cannula 4.00 05/03/16 20:00 97.3 74 18 127/63 93 05/03/16 17:41 16 05/03/16 16:00 98.8 64 19 181/83 91 05/03/16 12:00 98.1 75 18 150/71 91 I/O 05/03/16 05/03/16 05/03/16 05/04/16 05/04/16 05/04/16 07:00 15:00 23:00 07:00 15:00 23:00 Intake Total 1120 ml 766 ml 240 ml 240 ml Output Total 800 ml Balance 1120 ml -34 ml 240 ml 240 ml Intake Oral 120 ml 240 ml 240 ml 240 ml IV Total 1000 ml 526 ml Output Urine Total 800 ml # Voids 1 2 2 # Bowel Movements 0 0 0 3 (Adriana Mcgrath MD) Result Diagram: 05/04/16 0454 05/04/16 0454 Imaging Last Impressions Chest X-Ray 05/03/16 0000 Signed Impressions: Service Date/Time: Tuesday, May 03, 2016 12:05 - CONCLUSION: Basilar airspace disease. Laci Celestin MD Abdomen/Pelvis CT 04/29/16 1158 Signed Impressions: Service Date/Time: Friday, April 29, 2016 13:09 - CONCLUSION: Findings consistent with development of pancreatitis Reese Galvez MD Cholangiopancreatography MRI 04/29/16 0000 Signed Impressions: Service Date/Time: Friday, April 29, 2016 17:26 - CONCLUSION: Normal gallbladder and bile ducts. Somewhat prominent pancreas with indistinct margins suggesting pancreatitis less prominent than appreciated on today's CT scan. Trace amount of ascitic fluid in the upper abdomen. Reese Galvez MD Objective Remarks GENERAL: Lying flat in bed, sleeping when entering the room. Breathing with short shallow breaths and loud snoring. Patient awakens, and is alert, no acute distress SKIN: Warm and dry. CARDIOVASCULAR: Regular rate and rhythm. No murmur appreciated. RESPIRATORY: No accessory muscle use. On nasal cannula 4L O2 sat 93% MUSCULOSKELETAL: No obvious deformities. No clubbing. No cyanosis. No edema. NEUROLOGICAL: Awake and alert. Motor grossly within normal limits. Normal speech. PSYCHIATRIC: Appropriate mood. Slightly flat affect; insight and judgment normal. (Adriana Mcgrath MD) A/P Assessment and Plan 65-year-old female admitted previously in 2014 for acute pancreatitis presents to the ED with acute pancreatitis seen on CT of abdomen, with lipase elevated to >30,000 but now significantly improved. Discharge Planning Pending improvement in respiratory status DW Dr. Marks (Adriana Mcgrath MD) Attending Attestation Patient seen and examined. Case reviewed and discussed with the resident team. Agree with plan of care as discussed with me and documented in the resident note. She has an increased WBC and is SOB requiring oxygen plus her CXR is not normal. She is not on a ventilator, nor septic so based on up to date as she has been in the hospital less than 5 days before getting sxs and has not had prior abx, will use levaquin 750 iv. If not effective, can treat more aggressively. She was very ill on admission and seems to have acquired the pneumonia early on. (Trina Marks MD) Problem List: (1) Acute pancreatitis Status: Resolved Plan: CT abdomen showed pancreatitis with inflammatory changes extending into the mesentery but no obstructive pathology. Lipase on admission > 30,000. Also found to have elevated LFTs and lactic acid. -Elevated Lipase has resolved -LFTs remain elevated, Hepatitis panel negative -Continues to have limited PO intake, will advance as tolerated. GI consulted, appreciate assistance. * Acute pancreatitis etiology unclear * MRCP negative. * pending work up for autoimmune cholangiopathy/pancreatitis Medications: * Fluids stopped, encourage PO intake * [place] 5/325 PRN pain4-10 * Dilaudid 1mg IV Breakthrough (2) Requires supplemental oxygen Status: Acute Plan: Requiring oxygen, 3-4 L nasal cannula with saturations 93%. She was not on oxygen at home. Etiology unclear. Do not suspect antitrypsin deficiency as patient has adequate levels. Is at risk for pleural effusions due to pancreatitis but chest x-rays 2 have been negative. Likely due to atelectasis at this time. Also had allergic reaction to morphine on admission, possibly some residual bronchoconstriction -Failed walk test, will require home O2. Delivered oxygen tank to room yesterday, however patient states she needs a smaller portable tank as she has 2 flights of stairs at home. -PT ordered -Incentive spirometry q1hr while awake -Fluticasone 1 puff inhaled twice a day -Scheduled DuoNeb's every 6 hours -There may be a component of GIAN due to patient's snoring and daytime sleepiness. Encouraged patient to talk with her PCP for further workup as an outpatient Imaging: * CXR 05/03/16: Bibasilar airspace disease * CXR 05/01: Left lower lung atelectasis versus scarring (3) Allergy Status: Resolved Plan: Erythema and pruritus after morphine IV. However, may also be a component of an allergic reaction (possibly to to laundry soaps used on hospital bedding, or other allergic reaction). Symptoms now resolved -Treat with Claritin 10 mg daily, first dose 05/01 -Triamcinolone 0.1% cream PRN q6 for itching (4) HTN (hypertension) Status: Chronic Plan: Intermittent episodes elevated BP will closely monitor and consider increasing medications as indicated - Continue home medications of Cozaar 50 daily, and atenolol 50 daily - Hydralazine 10 mg by mouth every 4 hours when necessary blood pressure greater than 160/90 (5) Alcohol use Status: Chronic Plan: Counseled on cessation daily, as this could be contributing to development of pancreatitis. -Discussed again 05/01 that alcohol can be the cause of pancreatitis and abstaining would be barnhart. Patient voices her understanding and is in agreement (6) Anxiety and depression Status: Acute Plan: Per daughter, mother has had some anxiety and depression after injury just limited her ability to work. Daughter reports that patient did well with Lexapro -Begin at a low dose of 10 mg daily Lexapro. No QT prolongation on her recent EKG. (7) Nutrition, metabolism, and development symptoms Status: Acute Plan: Fluids: none Electrolytes: K+ 3.2, replace with 40meq x1, continue to monitor Diet: Clear liquid diet, okay to have crackers DVT PPx: SCDs. Discussed with patient regarding starting heparin for DVT prophylaxis, but patient declines. She states that she is going to be more ambulatory, and that when she is in bed she uses the SCDs. (Adriana Mcgrath MD) Problem Qualifiers (1) Acute pancreatitis: Qualified Code: K85.20 - Alcohol-induced acute pancreatitis, unspecified complication status (2) Allergy: Qualified Code: T78.40XA - Allergy, initial encounter (3) HTN (hypertension): Qualified Code: I10 - Essential hypertension Adriana Mcgrath MD May 04, 2016 08:49 Trina Marks MD May 04, 2016 11:33
[2016-05-04] MEDS: ASPIRIN 81 MG CHEW TAB PO SCH (09:04)
[2016-05-04] MEDS: LOSARTAN 50 MG TAB PO SCH (09:04)
[2016-05-04] MEDS: SODIUM CHLORIDE 0.9% FLUSH 5 ML FLUSH IV SCH ×2 (09:04→20:54)
[2016-05-04] MEDS: LORATADINE 10 MG TAB PO SCH (09:04)
[2016-05-04] MEDS: ATENOLOL 50 MG TAB PO SCH (09:04)
[2016-05-04] MEDS: ESCITALOPRAM OXALATE 10 MG TAB PO SCH (09:04)
[2016-05-04] MEDS: LEVOFLOXACIN 750 MG PREMIX INJ 150 ML IV SCH (12:48)
[2016-05-04] MEDS: FLUTICASONE PROPIONATE 220 MCG/ACT 12 GM INHALER INH SCH ×2 (12:48→20:53)
[2016-05-04] MEDS: RESP: ALBUTEROL 2.5 MG/IPRATROPIUM 0.5 MG NEB (SCH) NEB ×2 (16:17→22:36)
[2016-05-04] MEDS: HYDROmorphone HCL PF 1 MG/ML VIAL IV PUSH PRN (20:53)
[2016-05-05] VITALS (8 sets, daily range): BP systolic 152–178; BP diastolic 68–80; PULSE 72–79; RESP 17–20; TEMP 96.4–98.9; O2SAT 92–95
[2016-05-05] MEDS: RESP: ALBUTEROL 2.5 MG/IPRATROPIUM 0.5 MG NEB (SCH) NEB ×4 (03:49→21:26)
[2016-05-05 03:54] LABS: IGG SUBCLASSES 4 15.9 mg/dL (4-86)
[2016-05-05 05:47] LABS: AUTOMATED NEUTROPHIL # 11.3 TH/MM3 (1.8-7.7); BASOPHIL % 0.2 % (0.0-2.0); EOSINOPHIL # 0.8 TH/MM3 (0-0.4); EOSINOPHIL % 5.3 % (0.0-4.0); HEMATOCRIT 34.4 % (35.0-46.0); LYMPH % 10.2 % (9.0-44.0); LYMPHOCYTE # 1.6 TH/MM3 (1.0-4.8); MEAN CORPUSCULAR HEMOGLOBIN 31.3 PG (27.0-34.0); MONO % 11.2 % (0.0-8.0); NEUT % 73.1 % (16.0-70.0); PLATELET COUNT 193 TH/MM3 (150-450); RED BLOOD COUNT 3.73 MIL/MM3 (4.00-5.30); RED CELL DISTRIBUTION WIDTH 13.7 % (11.6-17.2); WHITE BLOOD COUNT 15.5 TH/MM3 (4.0-11.0)
[2016-05-05 05:58] LABS: HEMO FLAGS AUTO DIFF
[2016-05-05 06:00] LABS: POTASSIUM 3.1 MEQ/L (3.5-5.1)
[2016-05-05 07:18] LABS: BANDS 16 % (0-6); EOSINOPHILS 9 % (0-4); METAMYELOCYTES 3 % (0-1); NEUTROPHIL # MANUAL DIFF 11.9 TH/MM3 (1.8-7.7); PLASMA CELLS 1 % (0-0); PLATELET ESTIMATE SMEAR NORMAL (NORMAL); PLATELET MORPHOLOGY NORMAL (NORMAL); POLYS (SEG NEUTROPHILS) 58 % (16-70); SCAN/DIFF FINAL DIFF MANUAL; WBC DIFF SAMPLE 100
[2016-05-05] MEDS ORDERED: POTASSIUM CHLORIDE 20 MEQ CONTROLLED RELEASE TAB PO ONE (08:00)
[2016-05-05] MEDS: SODIUM CHLORIDE 0.9% FLUSH 5 ML FLUSH IV SCH ×2 (08:26→20:06)
[2016-05-05] MEDS: ATENOLOL 50 MG TAB PO SCH (08:26)
[2016-05-05] MEDS: ASPIRIN 81 MG CHEW TAB PO SCH (08:26)
[2016-05-05] MEDS: LORATADINE 10 MG TAB PO SCH (08:26)
[2016-05-05] MEDS: ESCITALOPRAM OXALATE 10 MG TAB PO SCH (08:26)
[2016-05-05] MEDS: LOSARTAN 50 MG TAB PO SCH (08:28)
[2016-05-05] MEDS: FLUTICASONE PROPIONATE 220 MCG/ACT 12 GM INHALER INH SCH ×2 (08:29→20:04)
[2016-05-05] MEDS: PANTOPRAZOLE SOD 40 MG DELAYED RELEASE TAB PO SCH (10:04)
--- NOTE | 2016-05-05 10:15 | HHI.FPPN ---
Subjective Remarks Patient seen and examined this morning. Tolerating clear diet. No pain this morning. Patient states that she ate 3 crackers last night, and then she felt nauseous and had abdominal pain. Denies vomiting. States she is able to walk around the room, and that she took a shower yesterday. Denies chest pain, shortness of breath, fevers, chills, or constipation. Says that she still having some loose stools. Requesting a note for excuse from work, to be sent HR here at [facility]. Per discussion with nursing this morning, patient is in bed most of the day. Is up to use the bathroom and to work with physical therapy, but is not walking much outside of this. (Adriana Mcgrath MD) Objective Vitals Vital Signs Date Time Temp Pulse Resp B/P Pulse Ox O2 Delivery O2 Flow Rate FiO2 05/05/16 08:48 93 Nasal Cannula 4.00 05/05/16 08:00 96.9 77 17 155/68 95 05/05/16 03:53 93 Nasal Cannula 4.00 05/05/16 00:00 96.4 76 20 162/80 95 05/04/16 22:36 93 Nasal Cannula 3.50 05/04/16 21:00 Nasal Cannula 4.00 05/04/16 20:00 97.0 80 22 190/87 93 05/04/16 16:00 97.6 69 17 146/68 96 05/04/16 12:00 99.6 64 17 142/66 96 I/O 05/04/16 05/04/16 05/04/16 05/05/16 05/05/16 05/05/16 06:59 14:59 22:59 06:59 14:59 22:59 Intake Total 240 ml 340 ml 740 ml 440 ml Output Total 700 ml 650 ml 550 ml Balance 240 ml -360 ml 90 ml -110 ml Intake Oral 240 ml 340 ml 740 ml 440 ml IV Total 0 ml 0 ml Output Urine Total 700 ml 650 ml 550 ml # Voids 2 # Bowel Movements 3 1 0 0 (Adriana Mcgrath MD) Result Diagram: 05/05/16 0508 05/05/16 0508 Imaging Last Impressions Chest X-Ray 05/03/16 0000 Signed Impressions: Service Date/Time: Tuesday, May 03, 2016 12:05 - CONCLUSION: Basilar airspace disease. Laci Celestin MD Abdomen/Pelvis CT 04/29/16 1158 Signed Impressions: Service Date/Time: Friday, April 29, 2016 13:09 - CONCLUSION: Findings consistent with development of pancreatitis Reese Galvez MD Cholangiopancreatography MRI 04/29/16 0000 Signed Impressions: Service Date/Time: Friday, April 29, 2016 17:26 - CONCLUSION: Normal gallbladder and bile ducts. Somewhat prominent pancreas with indistinct margins suggesting pancreatitis less prominent than appreciated on today's CT scan. Trace amount of ascitic fluid in the upper abdomen. Reese Galvez MD Objective Remarks GENERAL: Lying flat in bed, alert, no acute distress SKIN: Warm and dry. CARDIOVASCULAR: Regular rate and rhythm. No murmur appreciated. RESPIRATORY: No accessory muscle use. Lungs clear to auscultation bilaterally anteriorly and posteriorly. On nasal cannula 2L MUSCULOSKELETAL: No obvious deformities. No clubbing. No cyanosis. No edema. NEUROLOGICAL: Awake and alert. Motor grossly within normal limits. Normal speech. PSYCHIATRIC: Appropriate mood. Slightly flat affect; insight and judgment normal. (Adriana Mcgrath MD) A/P Assessment and Plan 65-year-old female admitted previously in 2014 for acute pancreatitis presents to the ED with acute pancreatitis seen on CT of abdomen, with lipase elevated to >30,000 but now significantly improved. Discharge Planning Pending improvement in respiratory status and overall clinical status Case management printed a note on letterhead to excuse patient from work due to being an inpatient in the hospital, and I signed it this morning. This will be picked up by human resources. SDW Dr. Marks (Adriana Mcgrath MD) Attending Attestation Patient seen and examined. Case reviewed and discussed with the resident team. Agree with plan of care as discussed with me and documented in the resident note. improving daily but was very ill and is slow to reach her baseline (Trina Marks MD) Problem List: (1) Acute pancreatitis Status: Resolved Plan: CT abdomen showed pancreatitis with inflammatory changes extending into the mesentery but no obstructive pathology. Lipase on admission > 30,000. Also found to have elevated LFTs and lactic acid. -Elevated Lipase has resolved, now normal -LFTs remain elevated, Hepatitis panel negative -Continues to have limited PO intake, will advance as tolerated. -Abdominal ultrasound ordered, evaluating for possible pseudocyst of the pancreas, which can be seen with pancreatitis -Encouraged patient to walk in the room and hallway as tolerated GI consulted, appreciate assistance. * Acute pancreatitis etiology unclear * MRCP negative. * pending work up for autoimmune cholangiopathy/pancreatitis Medications: * Fluids stopped, encourage PO intake * [place] 5/325 PRN pain4-10 * Dilaudid 1mg IV Breakthrough (2) Requires supplemental oxygen Status: Acute Plan: Requiring oxygen, 3-4 L nasal cannula with saturations 93%. She was not on oxygen at home. Etiology unclear. Do not suspect antitrypsin deficiency as patient has adequate levels. Is at risk for pleural effusions due to pancreatitis but chest x-rays 2 have been negative. -Failed walk test, will require home O2. Delivered oxygen tank to room yesterday, however patient states she needs a smaller portable tank as she has 2 flights of stairs at home. -PT ordered, home health care with physical therapy on discharge -Incentive spirometry q1hr while awake -Fluticasone 1 puff inhaled twice a day -Scheduled DuoNeb's every 6 hours -Continue to wean as tolerated -Possible GIAN due to patient's snoring and daytime sleepiness. Encouraged patient to talk with her PCP for further workup as an outpatient Imaging: * CXR 05/03/16: Bibasilar airspace disease * CXR 05/01: Left lower lung atelectasis versus scarring (3) Pneumonia Status: Acute Plan: Continues to require supplemental oxygen, and she was not on oxygen at home. Concern for pneumonia, given leukocytosis. Has been afebrile. -Added Levaquin 750mg daily, 05/04/16 -EKG ordered to evaluate for QT prolongation, pending (4) Allergy Status: Resolved Plan: Erythema and pruritus after morphine IV. However, may also be a component of an allergic reaction (possibly to to laundry soaps used on hospital bedding, or other allergic reaction). Symptoms now resolved -Treat with Claritin 10 mg daily, first dose 05/01 -Triamcinolone 0.1% cream PRN q6 for itching (5) HTN (hypertension) Status: Chronic Plan: Intermittent episodes elevated BP will closely monitor and consider increasing medications as indicated - Continue home medications of Cozaar 50 daily, and atenolol 50 daily - Hydralazine 10 mg by mouth every 4 hours when necessary blood pressure greater than 160/90. Nursing instruction to check blood pressure manually if there are elevated readings, and to give hydralazine when necessary for BP >160/ 90. (6) Alcohol use Status: Chronic Plan: Counseled on cessation daily, as this could be contributing to development of pancreatitis. -Discussed again 05/01 that alcohol can be the cause of pancreatitis and abstaining would be barnhart. Patient voices her understanding and is in agreement (7) Anxiety and depression Status: Acute Plan: Per daughter, mother has had some anxiety and depression after injury just limited her ability to work. Daughter reports that patient did well with Lexapro -Low dose, 10 mg, Lexapro started 05/02/16. EKG to evaluate for QT prolongation 05/05/16 (8) Nutrition, metabolism, and development symptoms Status: Acute Plan: Fluids: none Electrolytes: K+ 3.1, replace with 40meq x1, and start 20meq BID until normal. Daily BMP Diet: Clear liquid diet, okay to have crackers DVT PPx: SCDs. Discussed with patient regarding starting heparin for DVT prophylaxis, but patient declines. She states that she is going to be more ambulatory, and that when she is in bed she uses the SCDs. (Adriana Mcgrath MD) Problem Qualifiers (1) Acute pancreatitis: Qualified Code: K85.20 - Alcohol-induced acute pancreatitis, unspecified complication status (2) Pneumonia: Qualified Code: J18.9 - Pneumonia due to infectious organism, unspecified laterality, unspecified part of lung (3) Allergy: Qualified Code: T78.40XA - Allergy, initial encounter (4) HTN (hypertension): Qualified Code: I10 - Essential hypertension Adriana Mcgrath MD May 05, 2016 10:15 Trina Marks MD May 06, 2016 13:47
[2016-05-05] MEDS: LEVOFLOXACIN 750 MG PREMIX INJ 150 ML IV SCH (12:15)
[2016-05-05] MEDS: POTASSIUM CHLORIDE 20 MEQ CONTROLLED RELEASE TAB PO SCH (20:05)
[2016-05-05] MEDS: hydrALAZINE HCL 10 MG TAB PO PRN (20:05)
--- NOTE | 2016-05-05 21:51 | RADRPT ---
EXAM DATE/TIME: 05/05/2016 17:44 [facility] COMPARISON: CT ABDOMEN & PELVIS W/O CONTRAST, April 29, 2016, 13:09. INDICATIONS : Abdominal pain. MEDICAL HISTORY : Hypertension. Migraine. Arthritis. SURGICAL HISTORY : Hysterectomy. Tubal ligation. Spinal fusion. Disc repair. ENCOUNTER: Initial ACUITY: 1 day PAIN SCORE: 5/10 LOCATION: Abdomen. MEASUREMENTS: LIVER: 17.4 cm length COMMON DUCT: 4 mm RIGHT KIDNEY: 10.8 x 5.8 x 6.0 cm LEFT KIDNEY: 12.0 x 6.9 x 5.0 cm SPLEEN: 11.9 cm length AORTA: 2.6 cm maximal FINDINGS: LIVER: Increased echogenicity consistent with fatty infiltration. No focal mass or biliary ductal dilatation . COMMON DUCT: No intraluminal mass or stone visualized. GALLBLADDER: Contains no stones, demonstrates no wall thickening or pericholecystic fluid. PANCREAS: Indistinct and edematous. No focal collection or mass. RIGHT KIDNEY: No hydronephrosis, stone or mass. LEFT KIDNEY: Lower pole cysts SPLEEN: No focal lesion. AORTA: Non aneurysmal. IVC: Obscured. CONCLUSION: No new acute findings Bhavesh Nieves MD on May 05, 2016 at 21:48 Board Certified Radiologist. This report was verified electronically.
--- NOTE | 2016-05-05 23:31 | EKG ---
Date Performed: 05/05/2016 Time Performed: 11:37:07 PTAGE: 65 years EKG: Sinus rhythm NONSPECIFIC T-WAVE ABNORMALITY BORDERLINE ECG PREVIOUS TRACING : 04/29/2016 13.26 DOCTOR: Janell Cardozo Interpretating Date/Time 05/05/2016 23:31:22
[2016-05-06] VITALS (8 sets, daily range): BP systolic 125–149; BP diastolic 60–82; PULSE 67–76; RESP 16–20; TEMP 97.1–98.6; O2SAT 93–97
[2016-05-06] MEDS: RESP: ALBUTEROL 2.5 MG/IPRATROPIUM 0.5 MG NEB (SCH) NEB ×4 (04:20→21:33)
[2016-05-06 06:33] LABS: AUTOMATED NEUTROPHIL # 10.2 TH/MM3 (1.8-7.7); BASOPHIL # 0.1 TH/MM3 (0-0.2); BASOPHIL % 0.5 % (0.0-2.0); EOSINOPHIL # 0.9 TH/MM3 (0-0.4); EOSINOPHIL % 5.7 % (0.0-4.0); HEMATOCRIT 35.7 % (35.0-46.0); LYMPH % 13.4 % (9.0-44.0); MEAN CELL VOLUME 92.4 FL (80.0-100.0); MEAN CORPUSCULAR HEMOGLOBIN 30.9 PG (27.0-34.0); MEAN CORPUSCULAR HGB CONC 33.4 % (32.0-36.0); MONO % 12.7 % (0.0-8.0); NEUT % 67.7 % (16.0-70.0); PLATELET COUNT 240 TH/MM3 (150-450); RED BLOOD COUNT 3.86 MIL/MM3 (4.00-5.30); RED CELL DISTRIBUTION WIDTH 13.9 % (11.6-17.2); WHITE BLOOD COUNT 15.1 TH/MM3 (4.0-11.0)
[2016-05-06 06:37] LABS: HEMO FLAGS AUTO DIFF
[2016-05-06 07:03] LABS: BICARBONATE 25.1 MEQ/L (21.0-32.0); POTASSIUM 3.4 MEQ/L (3.5-5.1)
[2016-05-06 07:25] LABS: BANDS 7 % (0-6); CORRECTED NUCLEATED RBC 2 /100 WBC (0-0); EOSINOPHILS 2 % (0-4); MYELOCYTES 2 % (0-0); NEUTROPHIL # MANUAL DIFF 13.1 TH/MM3 (1.8-7.7); PLASMA CELLS 1 % (0-0); PLATELET ESTIMATE SMEAR NORMAL (NORMAL); PLATELET MORPHOLOGY NORMAL (NORMAL); POLYS (SEG NEUTROPHILS) 78 % (16-70); SCAN/DIFF FINAL DIFF MANUAL; WBC DIFF SAMPLE 100
[2016-05-06] MEDS: LORATADINE 10 MG TAB PO SCH (09:31)
[2016-05-06] MEDS: PANTOPRAZOLE SOD 40 MG DELAYED RELEASE TAB PO SCH (09:31)
[2016-05-06] MEDS: POTASSIUM CHLORIDE 20 MEQ CONTROLLED RELEASE TAB PO SCH ×2 (09:31→19:38)
[2016-05-06] MEDS: ESCITALOPRAM OXALATE 10 MG TAB PO SCH (09:31)
[2016-05-06] MEDS: ATENOLOL 50 MG TAB PO SCH (09:31)
[2016-05-06] MEDS: LOSARTAN 50 MG TAB PO SCH (09:31)
[2016-05-06] MEDS: ASPIRIN 81 MG CHEW TAB PO SCH (09:31)
[2016-05-06] MEDS: FLUTICASONE PROPIONATE 220 MCG/ACT 12 GM INHALER INH SCH ×2 (09:32→19:38)
[2016-05-06] MEDS: SODIUM CHLORIDE 0.9% FLUSH 5 ML FLUSH IV SCH ×2 (09:32→19:39)
--- NOTE | 2016-05-06 09:54 | HHI.FPPN ---
Subjective Remarks Patient seen and examined this morning. Patient says she feels much better today compared to yesterday. She was up to the bathroom to brush her teeth, comb her hair, and says she is walking around the room. Tolerating clear diet. No pain this morning. Denies nausea or vomiting, chest pain, shortness of breath, fevers, chills, diarrhea or constipation. She has been weaned down to 2 L of oxygen (Adriana Mcgrath MD) Objective Vitals Vital Signs Date Time Temp Pulse Resp B/P Pulse Ox O2 Delivery O2 Flow Rate FiO2 05/06/16 08:00 98.2 75 16 143/65 94 05/06/16 00:00 98.6 74 20 148/82 94 05/05/16 20:00 98.9 72 20 178/71 94 05/05/16 19:00 Nasal Cannula 2.00 05/05/16 16:00 98.5 75 18 162/70 95 05/05/16 15:54 92 21 05/05/16 12:00 98.4 79 18 152/68 94 I/O 05/05/16 05/05/16 05/05/16 05/06/16 05/06/16 05/06/16 07:00 15:00 23:00 07:00 15:00 23:00 Intake Total 440 ml 480 ml 480 ml 240 ml Output Total 550 ml 700 ml 450 ml Balance -110 ml 480 ml -220 ml -210 ml Intake Oral 440 ml 480 ml 480 ml 240 ml IV Total 0 ml 0 ml 0 ml Output Urine Total 550 ml 700 ml 450 ml # Voids 6 # Bowel Movements 0 1 0 0 (Adriana Mcgrath MD) Result Diagram: 05/06/16 0508 05/06/16 0508 Imaging Last Impressions Abdomen Ultrasound 05/05/16 0923 Signed Impressions: Service Date/Time: Thursday, May 05, 2016 17:44 - CONCLUSION: No new acute findings Bhavesh Nieves MD Chest X-Ray 05/03/16 0000 Signed Impressions: Service Date/Time: Tuesday, May 03, 2016 12:05 - CONCLUSION: Basilar airspace disease. Laci Celestin MD Abdomen/Pelvis CT 04/29/16 1158 Signed Impressions: Service Date/Time: Friday, April 29, 2016 13:09 - CONCLUSION: Findings consistent with development of pancreatitis Reese Galvez MD Cholangiopancreatography MRI 04/29/16 0000 Signed Impressions: Service Date/Time: Friday, April 29, 2016 17:26 - CONCLUSION: Normal gallbladder and bile ducts. Somewhat prominent pancreas with indistinct margins suggesting pancreatitis less prominent than appreciated on today's CT scan. Trace amount of ascitic fluid in the upper abdomen. Reese Galvez MD Objective Remarks GENERAL: Sitting up in bed, alert, no acute distress SKIN: Warm and dry. CARDIOVASCULAR: Regular rate and rhythm. No murmur appreciated. RESPIRATORY: No accessory muscle use. Lungs clear to auscultation bilaterally anteriorly and posteriorly. On nasal cannula 2L, O2 sat 94% MUSCULOSKELETAL: No obvious deformities. No clubbing. No cyanosis. No edema. NEUROLOGICAL: Awake and alert. Motor grossly within normal limits. Normal speech. PSYCHIATRIC: Appropriate mood. Slightly flat affect; insight and judgment normal. (Adriana Mcgrath MD) A/P Assessment and Plan 65-year-old female admitted previously in 2014 for acute pancreatitis presents to the ED with acute pancreatitis seen on CT of abdomen, with lipase elevated to >30,000 but now significantly improved. Discharge Planning Pending improvement in respiratory status and overall clinical status, much improvement today compared to yesterday. Anticipate discharge in the next 1-2 days, home with home health care. SDW Dr. Marks 05/05/16: Case management printed a note on letterhead to excuse patient from work due to being an inpatient in the hospital, and I signed it, and this will be picked up by human resources. (Adriana Mcgrath MD) Attending Attestation Patient seen and examined. Case reviewed and discussed with the resident team. Agree with plan of care as discussed with me and documented in the resident note. (Trina Marks MD) Problem List: (1) Acute pancreatitis Status: Resolved Plan: CT abdomen showed pancreatitis with inflammatory changes extending into the mesentery but no obstructive pathology. Lipase on admission > 30,000. Also found to have elevated LFTs and lactic acid. -Elevated Lipase has resolved, now normal -LFTs remain elevated, Hepatitis panel negative -Continues to have limited PO intake, will advance as tolerated. -Abdominal ultrasound 05/05/16: negative for acute findings -Encouraged patient to walk in the room and hallway as tolerated GI consulted, appreciate assistance. * Acute pancreatitis etiology unclear * MRCP negative. * pending work up for autoimmune cholangiopathy/pancreatitis Medications: * Encourage PO intake * [place] 5/325 PRN pain 4-10 * Dilaudid 1mg IV Breakthrough, last given on 05/04/16 (2) Requires supplemental oxygen Status: Resolved Plan: Requiring oxygen, now weaned to 2 L, from 4 L nasal cannula with saturations 94% . She was not on oxygen at home. Etiology unclear. Do not suspect antitrypsin deficiency as patient has adequate levels. Is at risk for pleural effusions due to pancreatitis but chest x-rays 2 have been negative. -Failed initial home oxygen walk test. Portable oxygen tank and regular oxygen tank available, if patient does need this on discharge. Patient needs the smaller portable tank as she has 2 flights of stairs at home and cannot carry larger tank. -Repeat home oxygen walk test prior to discharge, ordered for tomorrow morning. -PT ordered daily, home health care with physical therapy on discharge -Incentive spirometry q1hr while awake -Fluticasone 1 puff inhaled twice a day -Scheduled DuoNeb's every 6 hours -Continue to wean oxygen as tolerated -Possible GIAN due to patient's snoring and daytime sleepiness. Encouraged patient to talk with her PCP for further workup as an outpatient Imaging: * CXR 05/03/16: Bibasilar airspace disease * CXR 05/01: Left lower lung atelectasis versus scarring (3) Pneumonia Status: Acute Plan: Continues to require supplemental oxygen, and she was not on oxygen at home. Concern for pneumonia, given leukocytosis. Has been afebrile. -Continue Levaquin 750mg daily, 05/04/16 -EKG 05/05/16 negative for QT prolongation (4) HTN (hypertension) Status: Chronic Plan: Intermittent episodes elevated BP will closely monitor and consider increasing medications as indicated - Continue home medications of Cozaar 50 daily, and atenolol 50 daily - Hydralazine 10 mg by mouth every 4 hours when necessary blood pressure greater than 160/90. Nursing instruction to check blood pressure manually if there are elevated readings, and to give hydralazine when necessary for BP >160/ 90. (5) Alcohol use Status: Chronic Plan: Counseled on cessation daily, as this could be contributing to development of pancreatitis. -Discussed again 05/01 that alcohol can be the cause of pancreatitis and abstaining would be barnhart. Patient voices her understanding and is in agreement (6) Anxiety and depression Status: Acute Plan: Per daughter, her mother has had some anxiety and depression after injury just limited her ability to work. Daughter reports that patient did well with Lexapro -Lexapro 10 mg daily started 05/02/16. EKG did not show QT prolongation. (7) Nutrition, metabolism, and development symptoms Status: Acute Plan: Fluids: none Electrolytes: K+ 3.4, replace with 40meq x1, and start 20meq BID until normal. Daily BMP Diet: Clear liquid diet, okay to have crackers DVT PPx: SCDs. Discussed with patient regarding starting heparin for DVT prophylaxis, but patient declines. She states that she is going to be more ambulatory, and that when she is in bed she uses the SCDs. (Adriana Mcgrath MD) Problem Qualifiers (1) Acute pancreatitis: Qualified Code: K85.20 - Alcohol-induced acute pancreatitis, unspecified complication status (2) Pneumonia: Qualified Code: J18.9 - Pneumonia due to infectious organism, unspecified laterality, unspecified part of lung (3) HTN (hypertension): Qualified Code: I10 - Essential hypertension Adriana Mcgrath MD May 06, 2016 09:53 Trina Marks MD May 11, 2016 09:07
[2016-05-06] MEDS: LEVOFLOXACIN 750 MG PREMIX INJ 150 ML IV SCH (11:50)
--- NOTE | 2016-05-06 13:13 | HHI.FF ---
Face to Face Verification Diagnosis: (1) Acute pancreatitis (2) Anxiety and depression (3) Hx of gout (4) Lumbar back pain (5) HTN (hypertension) (6) Osteoarthritis (7) Requires supplemental oxygen (8) Oxygen dependent Physical Therapy Order: Evaluate and Treat Home Health Nursing Order: Medical education Signs/symptoms of disease process Oxygen administration education Medication education-adverse effect I have seen patient Shanika Bravo on 05/06/16. My clinical findings support the need for the requested home health care services because: Ltd mobility - disease progression Patient has SOB Deconditioned w/ increased weakness Med compliance is questionable Limited ability to care for self High risk of falls I certify that my clinical findings support that this patient is homebound because: Hx COPD- exertion dyspnea/weakness Unsteady gait/balance Adriana Mcgrath MD May 06, 2016 13:13
[2016-05-07] MEDS: RESP: ALBUTEROL 2.5 MG/IPRATROPIUM 0.5 MG NEB (SCH) NEB ×2 (05:26→10:10)
[2016-05-07 05:28] VITALS: O2SAT 95
[2016-05-07 05:51] LABS: AUTOMATED NEUTROPHIL # 10.3 TH/MM3 (1.8-7.7); BASOPHIL # 0.1 TH/MM3 (0-0.2); BASOPHIL % 0.6 % (0.0-2.0); EOSINOPHIL # 0.8 TH/MM3 (0-0.4); EOSINOPHIL % 5.4 % (0.0-4.0); HEMATOCRIT 35.9 % (35.0-46.0); LYMPH % 16.1 % (9.0-44.0); LYMPHOCYTE # 2.5 TH/MM3 (1.0-4.8); MEAN CELL VOLUME 92.4 FL (80.0-100.0); MEAN CORPUSCULAR HEMOGLOBIN 30.8 PG (27.0-34.0); MEAN CORPUSCULAR HGB CONC 33.3 % (32.0-36.0); MONO % 10.8 % (0.0-8.0); NEUT % 67.1 % (16.0-70.0); PLATELET COUNT 262 TH/MM3 (150-450); RED BLOOD COUNT 3.89 MIL/MM3 (4.00-5.30); RED CELL DISTRIBUTION WIDTH 14.1 % (11.6-17.2); WHITE BLOOD COUNT 15.4 TH/MM3 (4.0-11.0)
[2016-05-07 06:02] LABS: HEMO FLAGS AUTO DIFF
[2016-05-07 06:06] LABS: BICARBONATE 26.5 MEQ/L (21.0-32.0); POTASSIUM 3.5 MEQ/L (3.5-5.1)
[2016-05-07 07:20] LABS: BANDS 9 % (0-6); EOSINOPHILS 7 % (0-4); METAMYELOCYTES 2 % (0-1); MYELOCYTES 3 % (0-0); NEUTROPHIL # MANUAL DIFF 11.9 TH/MM3 (1.8-7.7); PLASMA CELLS 1 % (0-0); PLATELET ESTIMATE SMEAR NORMAL (NORMAL); PLATELET MORPHOLOGY NORMAL (NORMAL); POLYS (SEG NEUTROPHILS) 63 % (16-70); SCAN/DIFF FINAL DIFF MANUAL; WBC DIFF SAMPLE 100
[2016-05-07 08:00] VITALS: BP 120/56; PULSE 75; RESP 16; TEMP 96.8; O2SAT 92
[2016-05-07] MEDS: SODIUM CHLORIDE 0.9% FLUSH 5 ML FLUSH IV SCH (09:00)
[2016-05-07] MEDS: FLUTICASONE PROPIONATE 220 MCG/ACT 12 GM INHALER INH SCH (09:00)
[2016-05-07] MEDS: LOSARTAN 50 MG TAB PO SCH (09:01)
[2016-05-07] MEDS: ASPIRIN 81 MG CHEW TAB PO SCH (09:01)
[2016-05-07] MEDS: PANTOPRAZOLE SOD 40 MG DELAYED RELEASE TAB PO SCH (09:01)
[2016-05-07] MEDS: ATENOLOL 50 MG TAB PO SCH (09:01)
[2016-05-07] MEDS: LORATADINE 10 MG TAB PO SCH (09:01)
[2016-05-07] MEDS: POTASSIUM CHLORIDE 20 MEQ CONTROLLED RELEASE TAB PO SCH (09:01)
[2016-05-07] MEDS: ESCITALOPRAM OXALATE 10 MG TAB PO SCH (09:01)
[2016-05-07] MEDS ORDERED: SENN1TAB PO (09:12)
[2016-05-07] MEDS ORDERED: POTA20TA5 PO (09:12)
[2016-05-07] MEDS ORDERED: ESCI10TA PO (09:12)
[2016-05-07] MEDS ORDERED: HYDR-3516 PO (09:12)
[2016-05-07] MEDS ORDERED: TRIA.1%T TOPICAL (09:12)
[2016-05-07] MEDS ORDERED: LEVA750T PO (09:12)
[2016-05-07] MEDS ORDERED: DIPH25CA PO (09:12)
[2016-05-07] MEDS ORDERED: FLUTI220I INH (09:12)
--- NOTE | 2016-05-07 09:13 | HHI.FF ---
Face to Face Verification Diagnosis: (1) Pneumonia (2) Acute pancreatitis (3) Anxiety and depression (4) Hypoxia (5) Lumbar back pain (6) HTN (hypertension) (7) Itchy skin (8) Osteoarthritis (9) Gout Physical Therapy Order: Evaluate and Treat Home Health Nursing Order: Medical education Signs/symptoms of disease process Medication education-adverse effect I have seen patient Shanika Bravo on 05/07/16. My clinical findings support the need for the requested home health care services because: Ltd mobility - disease progression Patient has SOB Deconditioned w/ increased weakness I certify that my clinical findings support that this patient is homebound because: Hx COPD- exertion dyspnea/weakness Unsteady gait/balance Adriana Mcgrath MD May 07, 2016 09:13
[2016-05-07 10:10] VITALS: O2SAT 94
--- NOTE | 2016-05-07 10:17 | HHI.FPPN ---
Subjective Remarks Patient seen and examined this morning. She says that she feels "so much better today" and that she is "ready to go home now". She has been off oxygen since yesterday afternoon. She worked with physical therapy yesterday and her O2 saturations were 93% on room air when walking with physical therapy. She no longer feels short of breath. Denies chest pain. She is tolerating her clear diet without nausea or vomiting or abdominal pain. She is asking how long to continue the clear diet at home before she can eat regular foods. Also asked for a note to excuse her for the rest of the week from work. Objective Vitals Vital Signs Date Time Temp Pulse Resp B/P Pulse Ox O2 Delivery O2 Flow Rate FiO2 05/07/16 10:10 94 21 05/07/16 08:00 96.8 75 16 120/56 92 05/07/16 05:28 95 Nasal Cannula 2.00 05/06/16 23:35 97.1 74 18 143/64 93 05/06/16 20:00 97.9 67 18 149/66 95 05/06/16 16:00 97.9 67 16 125/60 94 05/06/16 15:54 97 Nasal Cannula 2.00 05/06/16 12:00 97.6 76 17 145/66 93 I/O 05/06/16 05/06/16 05/06/16 05/07/16 05/07/16 05/07/16 07:00 15:00 23:00 07:00 15:00 23:00 Intake Total 240 ml 1170 ml 280 ml 380 ml Output Total 450 ml Balance -210 ml 1170 ml 280 ml 380 ml Intake Oral 240 ml 1020 ml 280 ml 380 ml IV Total 0 ml 150 ml 0 ml 0 ml Output Urine Total 450 ml # Voids 3 2 1 # Bowel Movements 0 0 Result Diagram: 05/07/16 0523 05/07/16 0523 Imaging Last Impressions Abdomen Ultrasound 05/05/16 0923 Signed Impressions: Service Date/Time: Thursday, May 05, 2016 17:44 - CONCLUSION: No new acute findings Bhavesh Nieves MD Chest X-Ray 05/03/16 0000 Signed Impressions: Service Date/Time: Tuesday, May 03, 2016 12:05 - CONCLUSION: Basilar airspace disease. Laci Celestin MD Abdomen/Pelvis CT 12/28/16 1158 Signed Impressions: Service Date/Time: Friday, April 29, 2016 13:09 - CONCLUSION: Findings consistent with development of pancreatitis Reese Galvez MD Cholangiopancreatography MRI 04/29/16 0000 Signed Impressions: Service Date/Time: Friday, April 29, 2016 17:26 - CONCLUSION: Normal gallbladder and bile ducts. Somewhat prominent pancreas with indistinct margins suggesting pancreatitis less prominent than appreciated on today's CT scan. Trace amount of ascitic fluid in the upper abdomen. Reese Galvez MD Objective Remarks GENERAL: Walking around the room, not on oxygen, no acute distress. She appears comfortable, and significantly improved compared to prior days. SKIN: Warm and dry. CARDIOVASCULAR: Regular rate and rhythm. No murmur appreciated. RESPIRATORY: No accessory muscle use. Lungs clear to auscultation bilaterally anteriorly and posteriorly. Oxygen saturation 94% on room air. MUSCULOSKELETAL: No obvious deformities. No clubbing. No cyanosis. No edema. NEUROLOGICAL: Awake and alert. Motor grossly within normal limits. Normal speech. PSYCHIATRIC: Appropriate mood. Slightly flat affect; insight and judgment normal. A/P Assessment and Plan 65-year-old female admitted previously in 2014 for acute pancreatitis presents to the ED with acute pancreatitis seen on CT of abdomen, with lipase elevated to >30,000 but now significantly improved. Clinically significantly improved today. Discharge Planning Clinically she is significantly improved today and now off oxygen. Will discharge home today. Home health care written on discharge, as patient may benefit from physical therapy and home health care nurse, although she is much improved compared to days prior. *Note written on discharge to excuse patient from work through next Wednesday. 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 IRLANDA Marks Problem List: (1) Acute pancreatitis Status: Resolved Plan: CT abdomen showed pancreatitis with inflammatory changes extending into the mesentery but no obstructive pathology. Lipase on admission > 30,000. Also found to have elevated LFTs and lactic acid. -Elevated Lipase has resolved, now normal -LFTs remained elevated -Hepatitis panel negative -Tolerating clear liquid diet. Advised patient to continue this for at least a week after discharge, and only start eating solid foods when she feels hungry again and feels that she can tolerate this. -Abdominal ultrasound 05/05/16: negative for acute findings -Ambulatory in room and hallway more so than previous days GI consulted, appreciate assistance. * Acute pancreatitis etiology unclear * MRCP negative. * Work up for autoimmune cholangiopathy/pancreatitis negative Medications: * Encourage PO intake * [place] 5/325 PRN pain 4-10, prescription written on discharge * Shel[place]-Colace one tablet twice a day when necessary constipation, prescription written on discharge (2) Requires supplemental oxygen Status: Resolved Plan: RESOLVED. No longer requiring supplemental oxygen. Oxygen saturation 94% on room air. -Repeat home oxygen walk ordered for this morning, patient may not need oxygen on discharge -PT daily, home health care ordered with physical therapy on discharge -Incentive spirometry q1hr while awake -Fluticasone 1 puff inhaled twice a day, prescription on discharge -Scheduled DuoNeb's every 6 hours -Possible GIAN due to patient's snoring and daytime sleepiness. Encouraged patient to talk with her PCP for further workup as an outpatient Imaging: * CXR 05/03/16: Bibasilar airspace disease * CXR 05/01: Left lower lung atelectasis versus scarring (3) Pneumonia Status: Acute Plan: Concern for pneumonia, given leukocytosis and oxygen requirement. Improving on antibiotics. Has been afebrile. -Continue Levaquin 750mg daily, started 05/04/16, received 3 doses in hospital. Will provide 11 additional days to complete 14 day course -EKG 05/05/16 negative for QT prolongation (4) HTN (hypertension) Status: Chronic Plan: BP well controlled at 120/56 this morning - Continue home medications of Cozaar 50 daily, and atenolol 50 daily on discharge (5) Alcohol use Status: Chronic Plan: Counseled on cessation daily, as this could be contributing to development of pancreatitis. -Discussed that alcohol can be the cause of pancreatitis and abstaining would be barnhart. Patient voices her understanding and is in agreement -Patient states she is going to make significant lifestyle changes, and not drink alcohol at all in the future. (6) Anxiety and depression Status: Acute Plan: Per daughter, her mother has had some anxiety and depression after injury just limited her ability to work. Daughter reports that patient did well with Lexapro -Lexapro 10 mg daily started 05/02/16, continue on discharge -EKG did not show QT prolongation. (7) Nutrition, metabolism, and development symptoms Status: Acute Plan: Fluids: none Electrolytes: Normal. She has had hypokalemia during this admission. Written for additional 5 days of PO potassium 20meq BID on discharge. Diet: Clear liquid diet, okay to have crackers. DVT PPx: SCDs. Discussed with patient regarding starting heparin for DVT prophylaxis, but patient declines. She states that she is going to be more ambulatory, and that when she is in bed she uses the SCDs. Problem Qualifiers (1) Acute pancreatitis: Qualified Code: K85.20 - Alcohol-induced acute pancreatitis, unspecified complication status (2) Pneumonia: Qualified Code: J18.9 - Pneumonia due to infectious organism, unspecified laterality, unspecified part of lung (3) HTN (hypertension): Qualified Code: I10 - Essential hypertension Adriana Mcgrath MD May 07, 2016 10:17 Qualified Code: I10 - Essential hypertension Adriana Mcgrath MD May 07, 2016 10:17
--- NOTE | 2016-05-07 15:56 | HHI.DS ---
Discharge Summary Admission Date Apr 29, 2016 at 14:14 Discharge Date: May 07, 2016 Admitting Diagnosis severe pancreatitis, lactic acidosis, transaminitis (1) Acute pancreatitis Diagnosis: Principal Plan: CT abdomen showed pancreatitis with inflammatory changes extending into the mesentery but no obstructive pathology. Lipase on admission > 30,000. Also found to have elevated LFTs and lactic acid. -Elevated Lipase has resolved, now normal -LFTs remained elevated -Hepatitis panel negative -Tolerating clear liquid diet. Advised patient to continue this for at least a week after discharge, and only start eating solid foods when she feels hungry again and feels that she can tolerate this. -Abdominal ultrasound 05/05/16: negative for acute findings -Ambulatory in room and hallway more so than previous days GI consulted, appreciate assistance. * Acute pancreatitis etiology unclear * MRCP negative. * Work up for autoimmune cholangiopathy/pancreatitis negative Medications: * Encourage PO intake * [place] 5/325 PRN pain 4-10, prescription written on discharge * Shelly-Colace one tablet twice a day when necessary constipation, prescription written on discharge (2) Requires supplemental oxygen Diagnosis: Principal Plan: RESOLVED. No longer requiring supplemental oxygen. Oxygen saturation 94% on room air. -Repeat home oxygen walk ordered for this morning, patient may not need oxygen on discharge -PT daily, home health care ordered with physical therapy on discharge -Incentive spirometry q1hr while awake -Fluticasone 1 puff inhaled twice a day, prescription on discharge -Scheduled DuoNeb's every 6 hours -Possible GIAN due to patient's snoring and daytime sleepiness. Encouraged patient to talk with her PCP for further workup as an outpatient Imaging: * CXR 05/03/16: Bibasilar airspace disease * CXR 05/01: Left lower lung atelectasis versus scarring (3) Pneumonia Diagnosis: Principal Plan: Concern for pneumonia, given leukocytosis and oxygen requirement. Improving on antibiotics. Has been afebrile. -Continue Levaquin 750mg daily, started 05/04/16, received 3 doses in hospital. Will provide 11 additional days to complete 14 day course -EKG 05/05/16 negative for QT prolongation (4) HTN (hypertension) Diagnosis: Secondary Plan: BP well controlled at 120/56 this morning - Continue home medications of Cozaar 50 daily, and atenolol 50 daily on discharge (5) Alcohol use Diagnosis: Secondary Plan: Counseled on cessation daily, as this could be contributing to development of pancreatitis. -Discussed that alcohol can be the cause of pancreatitis and abstaining would be barnhart. Patient voices her understanding and is in agreement -Patient states she is going to make significant lifestyle changes, and not drink alcohol at all in the future. (6) Anxiety and depression Diagnosis: Secondary Plan: Per daughter, her mother has had some anxiety and depression after injury just limited her ability to work. Daughter reports that patient did well with Lexapro -Lexapro 10 mg daily started 05/02/16, continue on discharge -EKG did not show QT prolongation. (7) Nutrition, metabolism, and development symptoms Diagnosis: Secondary Plan: Fluids: none Electrolytes: Normal. She has had hypokalemia during this admission. Written for additional 5 days of PO potassium 20meq BID on discharge. Diet: Clear liquid diet, okay to have crackers. DVT PPx: SCDs. Discussed with patient regarding starting heparin for DVT prophylaxis, but patient declines. She states that she is going to be more ambulatory, and that when she is in bed she uses the SCDs. Consultants GI Brief History Ms Bravo is a 65-year-old female with history of hypertension, osteoarthritis of hands, chronic low back pain, obesity, and gout who presented to the ED for abdominal pain. She was hospitalized for acute pancreatitis in March 2015 and lipase at that time was 15,000. She says that she is unsure if it was secondary to alcohol or her medications at that time. At that admission, she denied heavy drinking the week or day prior to attack. She did leave AMA after declining HIDA scan and MRCP. Hepatitis workup was not completed. Ultrasound did not find gallstone or inflammation of gallbladder. She has declined screening colonoscopy as outpatient. Recent order for GI referral and colonoscopy as an outpatient was placed and set up, but patient then declined the appointment when GI call to set up the referral. The day before admission between 11 am and 8 pm she drank 6 glasses of wine and 4 beers. She woke up around 4:30am the morning of admission with sudden nausea, vomiting and epigastric abdominal pain associated with loose stools. She denies history of gallstones, biliary colic, or cholecystitis. Denies dysuria, frequency, or urgency. Denies fever, chills, sweats, chest pain, or shortness of breath. Her main complaint is the sharp, epigastric abdominal pain, radiating to the flanks bilaterally. The pain is worse with movement. She was placed in the ICU as she had high lactic acid levels and was in danger of getting worse with her lipase as high as the lab can be at greater than 30, 000. However, she feels improved this am and is thirsty. She has continuing pain but much better overall compared to admission. She is hoping to go back to work next week. She did not take any new meds or OTC meds and denied any pills that are known to cause pancreatitis. She denies daily alcohol consumption but did binge drink as well as having large amounts of "spicy wings" before getting pancreatitis this time. CBC/BMP: 05/07/16 0523 05/07/16 0523 Significant Findings Laboratory Tests Test 05/05/16 05/06/16 05/07/16 05:08 05:08 05:23 White Blood Count 15.5 TH/MM3 15.1 TH/MM3 15.4 TH/MM3 (4.0-11.0) (4.0-11.0) (4.0-11.0) Red Blood Count 3.73 MIL/MM3 3.86 MIL/MM3 3.89 MIL/MM3 (4.00-5.30) (4.00-5.30) (4.00-5.30) Hematocrit 34.4 % (35.0-46.0) Neutrophils (%) (Auto) 73.1 % (16.0-70.0) Monocytes (%) (Auto) 11.2 % 12.7 % 10.8 % (0.0-8.0) (0.0-8.0) (0.0-8.0) Eosinophils (%) (Auto) 5.3 % (0.0-4.0) 5.7 % (0.0-4.0) 5.4 % (0.0-4.0) Neutrophils # (Auto) 11.3 TH/MM3 10.2 TH/MM3 10.3 TH/MM3 (1.8-7.7) (1.8-7.7) (1.8-7.7) Monocytes # (Auto) 1.7 TH/MM3 1.9 TH/MM3 1.7 TH/MM3 (0-0.9) (0-0.9) (0-0.9) Eosinophils # (Auto) 0.8 TH/MM3 0.9 TH/MM3 0.8 TH/MM3 (0-0.4) (0-0.4) (0-0.4) Band Neutrophils % 16 % (0-6) 7 % (0-6) 9 % (0-6) Lymphocytes % 7 % (9-44) 7 % (9-44) Eosinophils % 9 % (0-4) 7 % (0-4) Neutrophils # (Manual) 11.9 TH/MM3 13.1 TH/MM3 11.9 TH/MM3 (1.8-7.7) (1.8-7.7) (1.8-7.7) Metamyelocytes 3 % (0-1) 2 % (0-1) Plasma Cells 1 % (0-0) 1 % (0-0) 1 % (0-0) Potassium Level 3.1 MEQ/L 3.4 MEQ/L (3.5-5.1) (3.5-5.1) Creatinine 0.45 MG/DL 0.46 MG/DL (0.50-1.00) (0.50-1.00) Calcium Level 8.1 MG/DL 8.4 MG/DL 8.1 MG/DL (8.5-10.1) (8.5-10.1) (8.5-10.1) Neutrophils % (Manual) 78 % (16-70) Myelocytes 2 % (0-0) 3 % (0-0) Nucleated Red Blood Cells 2 /100 WBC (0-0) Imaging Last Impressions Abdomen Ultrasound 05/05/16 0923 Signed Impressions: Service Date/Time: Thursday, May 05, 2016 17:44 - CONCLUSION: No new acute findings Bhavesh Nieves MD Chest X-Ray 05/03/16 0000 Signed Impressions: Service Date/Time: Tuesday, May 03, 2016 12:05 - CONCLUSION: Basilar airspace disease. Laci Celestin MD Abdomen/Pelvis CT 04/29/16 1158 Signed Impressions: Service Date/Time: Friday, April 29, 2016 13:09 - CONCLUSION: Findings consistent with development of pancreatitis Reese Galvez MD Cholangiopancreatography MRI 04/29/16 0000 Signed Impressions: Service Date/Time: Friday, April 29, 2016 17:26 - CONCLUSION: Normal gallbladder and bile ducts. Somewhat prominent pancreas with indistinct margins suggesting pancreatitis less prominent than appreciated on today's CT scan. Trace amount of ascitic fluid in the upper abdomen. Reese Galvez MD PE at Discharge GENERAL: Walking around the room, not on oxygen, no acute distress. She appears comfortable, and significantly improved compared to prior days. SKIN: Warm and dry. CARDIOVASCULAR: Regular rate and rhythm. No murmur appreciated. RESPIRATORY: No accessory muscle use. Lungs clear to auscultation bilaterally anteriorly and posteriorly. Oxygen saturation 94% on room air. MUSCULOSKELETAL: No obvious deformities. No clubbing. No cyanosis. No edema. NEUROLOGICAL: Awake and alert. Motor grossly within normal limits. Normal speech. PSYCHIATRIC: Appropriate mood. Slightly flat affect; insight and judgment normal. Hospital Course Acute pancreatitis: Lipase on admission greater than 30,000, resolved to normal within one day. Patient clinically took several days to improve. Unclear etiology. GI was consulted. Full workup was negative. MRCP negative. US abdomen negative. Autoimmune workup negative. Possibly related to alcohol use. Patient was counseled extensively on cessation of alcohol completely in the future. She voices understanding. Patient improved daily after being placed npo, IV fluids and pain control. She had required supplemental oxygen while in the hospital, and she was not on oxygen at home. Treatment for suspected pneumonia was started, and patient clinically improved after antibiotics were started. She has been able to tolerate a clear diet for the last several days. She is significantly improved yesterday and today, and is now off oxygen. She was stable for discharge home today. Hypertension: Control of hypertension achieved with antihypertensive medications taken at home. Depression/anxiety: Patient was started on low-dose Lexapro 10 mg daily, can increased dose by patient's PCP as needed. Pt Condition on Discharge: Good Discharge Disposition: Disch w/ Home Health Serv Discharge Instructions DIET: Follow Instructions for: Full Liquid Diet Additional Diet Instructions: clear liquids for at least next week Activities you can perform: Regular-No Restrictions Follow up Referrals: Gastroenterology - 05/15/16 with Geena Campuzano MD PCP Follow-up - 1 Week with Renae Miller MD R1 New Medications: Levofloxacin (Levaquin) 750 Mg Tab 750 MG PO DAILY Infection #11 Ref 0 TAB Oxygen tank (Oxygen tank) 1 Ea Tank 2 LITER MG.CANULA CONTINUOUS Oxygen Concentrator Portable Gaseous 2 L/min via Nasal Cannula Continuous For 99 months HYPOXEMIA PREVENTION #1 Ref 99 CYLINDER Diphenhydramine (Diphenhydramine) 25 Mg Cap 25 MG PO DAILY PRN ITCHING #30 CAP Escitalopram (Escitalopram) 10 Mg Tab 10 MG PO DAILY #30 Ref 0 TAB Fluticasone 12 GM Inh (Flovent Hfa 12 GM Inh) 220 Mcg/Act Inh 1 PUFF INH BID #1 INHALER Hydrocodone-Acetaminophen (Hydrocodone-Acetaminophen) 5-325 mg Tab 1 TAB PO Q6H PRN PAIN SCALE 4 TO 10 #30 Ref 0 TAB Loratadine (Claritin) 10 Mg Tab 10 MG PO DAILY #30 Ref 0 TAB Potassium Chloride Microencaps (Potassium Chloride Microencaps) 20 Meq Tab 20 MEQ PO Q12HR #10 Ref 0 TAB Sennosides-Docusate Sodium (Senna Plus 8.6-50 mg) 1 Tab Tab 1 TAB PO BID #30 Ref 3 TAB Triamcinolone Topical (Triamcinolone Topical) 0.1% Cream 1 APPLIC TOPICAL Q6HR #1 Ref 1 TUBE Continued Medications: Aspirin (Aspir-81) 81 Mg Tab 81 MG PO DAILY TAB Atenolol (Atenolol) 50 Mg Tab 50 MG PO DAILY Take 1 pill daily. #90 Ref 3 TAB Ibuprofen (Ibuprofen) 800 Mg Tab 800 MG PO Q6H PRN PAIN SCALE 1 TO 10 #30 TAB Losartan Potassium 50 MG (Losartan Potassium 50 MG) 50 Mg Tab 50 MG PO DAILY Take one daily for high blood pressure. #90 Ref 2 TAB Oxycodone-Acetaminophen 5-325 mg (Percocet 5-325 mg) 1 Tab 1 TAB PO Q4H PRN PAIN SCALE 1 TO 10 #20 TAB Tramadol Hcl (Tramadol HCl ER) 100 Mg Tab 100 MG PO DAILY Take 1-2 pills, as needed, for pain. #30 Ref 0 TAB Adriana Mcgrath MD May 07, 2016 15:56
== END 2016-05-07 11:46 | disposition home health service (06) | DRG 438 ==
LOC: NEPE 11:37 → NEDA 14:14 → N03A 17:55 → N07A 05-01 16:09
PROVIDERS: ADMIT Family Medicine; ATTEND Family Medicine
DX: K85.20 Alcohol induced acute pancreatitis without necrosis or infection (principal); J18.9 Pneumonia, unspecified organism; E87.2 Acidosis; J98.11 Atelectasis; I10 Essential (primary) hypertension; M19.90 Unspecified osteoarthritis, unspecified site; T40.2X5A Adverse effect of other opioids, initial encounter; L29.8 Other pruritus; L27.0 Generalized skin eruption due to drugs and medicaments taken internally; Y92.230 Patient room in hospital as the place of occurrence of the external cause; F41.9 Anxiety disorder, unspecified; G47.33 Obstructive sleep apnea (adult) (pediatric); E87.6 Hypokalemia; E66.9 Obesity, unspecified; G89.29 Other chronic pain; F32.9 Major depressive disorder, single episode, unspecified; M10.9 Gout, unspecified; M54.5 Low back pain; Y90.0 Blood alcohol level of less than 20 mg/100 ml; Z68.38 Body mass index [BMI] 38.0-38.9, adult; Z72.89 Other problems related to lifestyle; Z98.1 Arthrodesis status
CPT/HCPCS: 71010; 71020; 74176; 74181; 76377; 76700; 80048; 80053; 80074; 80301; 80320; 81001; 82103; 82105; 82248; 82390; 82728; 82784; 82787; 83520; 83540; 83550; 83605; 83615; 83690; 83735; 84100; 84478; 85007; 85025; 85027; 86140; 86256; 87086; 87641; 93005; 94150; 94620; 94640; 94664; 96361; 96374; 96375; G0479; J1170; J1956; J2270; J2405; J7030; J7120; Q0163